=== PATIENT | male | born 1955 | race Caucasian/White ===

== ENCOUNTER 2016-10-13 13:24 | Inpatient (IN) | payer MEDICAID ==
[~2016-10-13] VITALS: Ht 172.7 cm; Wt 67.3 kg
--- NOTE | 2016-10-13 14:05 | ERD ---
ER Documentation Chief Complaint Date/Time DATE: 10/13/16 TIME: 14:03 Chief Complaint pt bib case workers with c/o "being confused" just ut'ed from [facility] HPI Patient is a 61-year-old male who presents with gradual onset, constant, generalized weakness and fatigue for 3 days. The patient states that he was discharged from [facility] after being admitted for syncope and hypertension. He is taking antihypertensive medications currently. He reports that he has chronic hemorrhoids and has had bleeding and pain from his hemorrhoids. He denies fever, cough, shortness of breath, vomiting, abdominal pain, chest pain. He denies headache or dizziness. He reports having new onset bilateral lower extremity edema. ROS All systems reviewed and are negative except as per history of present illness. Medications Home Meds Unable to Obtain Active Prescriptions or Reported Meds Allergies Allergies: Coded Allergies: aspirin (Verified Allergy, Mild, 10/13/16) PMhx/Soc Past medical history: Hypertension, asthma Past surgical history: Repair of umbilical hernia Social history: Smokes marijuana, denies alcohol or tobacco History of Surgery: Yes (HERNIA) Hx Cardiac Disorders: Yes (HTN) Hx Alcohol Use: No Hx Substance Use: No Hx Tobacco Use: Yes Smoking Status: Current some day smoker FmHx Family History: No coronary disease, No diabetes Physical Exam Vitals Vital Signs Date Time Temp Pulse Resp B/P Pulse Ox O2 Delivery O2 Flow Rate FiO2 10/13/16 17:39 98.4 91 18 129/76 98 Room Air 10/13/16 15:20 98.7 80 18 109/65 98 Room Air 10/13/16 13:29 98.0 102 18 123/65 98 Physical Exam Const: Alert, no acute distress Head: Atraumatic Eyes: Normal Conjunctiva, no pallor, no icterus ENT: Normal External Ears, Nose and Mouth. Tacky mucous membranes Neck: Full range of motion..~ No meningismus. No JVD Resp: Clear to auscultation bilaterally, no wheezes, no rales Cardio: Regular rate and rhythm, no murmurs Abd: Soft, non tender, non distended. Skin: No petechiae or rashes Back: No midline or flank tenderness Ext: No cyanosis, 2+ pitting edema to the upper shins bilaterally, symmetric Neur: Awake and alert, cranial nerves II through XII intact bilaterally, strength and sensation full in 4 extremities. Psych: Normal Mood and Affect Result Diagram: 10/13/16 1415 10/13/16 1415 Results 24 hrs Laboratory Tests Test 10/13/16 14:15 10/13/16 16:36 White Blood Count 19.510^3/ul Red Blood Count 4.2510^6/ul Hemoglobin 12.7g/dl Hematocrit 38.6% Mean Corpuscular Volume 90.8fl Mean Corpuscular Hemoglobin 29.9pg Mean Corpuscular Hemoglobin Concent 32.9g/dl Red Cell Distribution Width 14.2% Platelet Count 54233^3/UL Mean Platelet Volume 10.0fl Neutrophils % 67.7% Lymphocytes % 14.8% Monocytes % 9.0% Eosinophils % 2.8% Basophils % 0.6% Nucleated Red Blood Cells % 0.0/100WBC Neutrophils # (Manual) 13.210^3/ul Lymphocytes # 2.910^3/ul Monocytes # 1.810^3/ul Eosinophils # 0.610^3/ul Basophils # 0.110^3/ul Nucleated Red Blood Cells # 0.010^3/ul Prothrombin Time 12.7Sec Prothrombin Time Ratio 1.0 INR International Normalized Ratio 0.95 Sodium Level 143mmol/L Potassium Level 4.8mmol/L Chloride Level 101mmol/L Carbon Dioxide Level 27mmol/L Anion Gap 20 Blood Urea Nitrogen 50mg/dl Creatinine 3.93mg/dl Glucose Level 107mg/dl Lactic Acid Level 1.1mmol/L Calcium Level 8.7mg/dl Total Bilirubin 0.1mg/dl Direct Bilirubin 0.00mg/dl Indirect Bilirubin 0.1mg/dl Aspartate Amino Transf (AST/SGOT) 33IU/L Alanine Aminotransferase (ALT/SGPT) 39IU/L Alkaline Phosphatase 147IU/L Creatine Kinase 47IU/L Troponin I 0.016ng/ml B-Type Natriuretic Peptide 572PG/ML Total Protein 6.7g/dl Albumin 3.3g/dl Globulin 3.40g/dl Albumin/Globulin Ratio 0.97 Urine Color YELLOW Urine Clarity SLIGHTLY CLOUDY Urine pH 5.0 Urine Specific Lutz 1.015 Urine Ketones NEGATIVEmg/dL Urine Nitrite NEGATIVEmg/dL Urine Bilirubin NEGATIVEmg/dL Urine Urobilinogen 1+mg/dL Urine Leukocyte Esterase NEGATIVELeu/ul Urine Microscopic RBC 2/HPF Urine Microscopic WBC 2/HPF Urine Bacteria FEW/HPF Urine Hemoglobin NEGATIVEmg/dL Urine Glucose NEGATIVEmg/dL Urine Total Protein NEGATIVEmg/dl Urine Opiates Screen Negative Urine Barbiturates Negative Urine Amphetamines Screen Negative Urine Benzodiazepines Screen Negative Urine Cocaine Screen Negative Urine Cannabinoids Positive Current Medications Medications (Trade) Dose Ordered Sig/Rica Route PRN Reason Start Time Stop Time Status Last Admin Dose Admin Sodium Chloride (NS) 500 ml @ 500 mls/hr Q1H ONCE IV 10/13/16 18:30 10/13/16 19:29 Ondansetron HCl (Zofran Inj) 4 mg BRIDGE ORDER PRN IV NAUSEA AND/OR VOMITING 10/13/16 19:00 10/14/16 18:59 Acetaminophen (Tylenol Tab) 650 mg ER BRIDGE PRN PO MILD PAIN/FEVER 10/13/16 19:00 10/14/16 18:59 Procedures/MDM EKG read by me: Time 1422, rate 80 Rhythm: Normal sinus [place]: Normal Intervals: Normal ST-T waves: no ischemic changes Ectopy: No Q-waves: Anterior Q waves Impression: No evidence of ischemia or arrhythmia, anterior Q waves suggestive of prior anterior infarct MDM: Patient is a 61-year-old male who presents to the ER with generalized weakness and fatigue for 3 days. He states that he has also had new onset of lower extremity edema. The patient was admitted to [facility] on October 03. I obtained records from the hospital which indicate that the patient had acute renal failure with hyperkalemia and leukocytosis. Workup did not reveal a source of infection or a cause of the patient's renal failure. He was treated and his kidney function normalized to a creatinine of 1.4. He is now found to have a creatinine of almost 4. His BUN creatinine ratio does not suggest a prerenal etiology. An ultrasound of his bladder does not show a significant PVR. He has significant leukocytosis but no fever. There is no sign of soft tissue infection, UTI, pneumonia. Blood cultures were sent. Lactic acid was not elevated at outside hospital. His CK is not elevated. The patient has clinical signs of volume overload with bilateral lower extremity edema and has a slightly elevated BNP. I will give him a small bolus of fluid, and admit him for further workup of acute renal failure. Departure Diagnosis: Primary Impression: Generalized weakness Additional Impressions: Acute renal failure Acute renal failure type: unspecified Qualified Code: N17.9 - Acute renal failure, unspecified acute renal failure type Leukocytosis Leukocytosis type: unspecified Qualified Code: D72.829 - Leukocytosis, unspecified type Condition: ALEXY Lopez MD Oct 13, 2016 14:02
[2016-10-13 14:23] LABS: ABNORMAL IP MESSAGE 1; BASOPHIL # 0.1 10^3/ul (0.0-0.1); BASOPHILS % 0.6 % (0.0-2.0); EOSINOPHILS # 0.6 10^3/ul (0.0-0.5); EOSINOPHILS % 2.8 % (0.0-7.0); HEMATOCRIT 38.6 % (42.0-52.0); HEMOGLOBIN 12.7 g/dl (14.0-18.0); LYMPHOCYTES # 2.9 10^3/ul (0.8-2.9); LYMPHOCYTES % 14.8 % (15.0-51.0); MEAN CORPUSCULAR HEMOGLOBIN 29.9 pg (29.0-33.0); MEAN CORPUSCULAR HGB CONC 32.9 g/dl (32.0-37.0); MEAN CORPUSCULAR VOLUME 90.8 fl (82.0-101.0); MONOCYTE # 1.8 10^3/ul (0.3-0.9); NEUTROPHILS % 67.7 % (39.0-77.0); PLATELET COUNT 412 10^3/UL (140-415); POSITIVE DIFF @See below; RED BLOOD COUNT 4.25 10^6/ul (4.70-6.10); RED CELL DISTRIBUTION WIDTH 14.2 % (11.5-14.5); WHITE BLOOD COUNT 19.5 10^3/ul (4.8-10.8)
[2016-10-13 14:38] LABS: INR 0.95; PROTIME 12.7 Sec (12.2-14.2)
[2016-10-13 14:40] LABS: BILIRUBIN,INDIRECT 0.1 mg/dl (0-1.1); CALCIUM 8.7 mg/dl (8.4-10.2); CREATININE 3.93 mg/dl (0.61-1.24); POTASSIUM 4.8 mmol/L (3.5-5.1)
[2016-10-13 14:41] LABS: ALBUMIN 3.3 g/dl (3.3-4.9); ALBUMIN/GLOBULIN RATIO 0.97; BILIRUBIN,TOTAL 0.1 mg/dl (0.2-1.3); TOTAL PROTEIN 6.7 g/dl (6.1-8.1)
[2016-10-13 14:52] LABS: TROPONIN-I 0.016 ng/ml (0.00-0.12)
--- NOTE | 2016-10-13 15:33 | RADRPT ---
PROCEDURE: XR Chest. CLINICAL INDICATION: Shortness of breath TECHNIQUE: Single AP portable chest. COMPARISON: None. Chest x-ray FINDINGS: The cardiomediastinal silhouette is within normal limits of size. The lungs are clear without pleur al effusion or focal consolidation. No pneumothorax. The osseous structures and soft tissues are unr emarkable. IMPRESSION: 1. No evidence for active cardiopulmonary disease. RPTAT:AAJJ Dee Guzman Physician Date Time Electronically viewed and signed by Physician Dmitry on 10/13/2016 15:32 ARMANI/
[2016-10-13 17:01] LABS: ADD UMIC NO; UR ASCORBIC ACID NEGATIVE (NEGATIVE); UR BACTERIA FEW /HPF (NONE SEEN); UR BILIRUBIN (Dip) NEGATIVE (NEGATIVE); UR BLOOD (Dip) NEGATIVE (NEGATIVE); UR CLARITY SLIGHTLY CLOUDY (CLEAR); UR COLOR YELLOW (YELLOW); UR GLUCOSE (Dip) NEGATIVE (NEGATIVE); UR KETONES (Dip) NEGATIVE (NEGATIVE); UR LEUKOCYTE ESTERASE (Dip) NEGATIVE Leu/ul (NEGATIVE); UR NITRITE (Dip) NEGATIVE (NEGATIVE); UR RBC 2 /HPF (0-5); UR SPECIFIC GRAVITY (Dip) 1.015 (1.003-1.030); UR TOTAL PROTEIN (Dip) NEGATIVE (NEGATIVE); UR UROBILINOGEN (Dip) 1+ mg/dL (NEGATIVE)
[2016-10-13 17:39] VITALS: TEMP 98.4
[2016-10-13 17:47] LABS: BARBITURATES Negative (NEGATIVE); BENZODIAZEPINES Negative (NEGATIVE); CANNABINOIDS Positive (NEGATIVE); COCAINE Negative (NEGATIVE); OPIATES Negative (NEGATIVE)
[2016-10-13] MEDS ORDERED: SOD CHLORIDE 0.9% 500 ML IV ONE (18:30)
[2016-10-13] MEDS ORDERED: ACETAMINOPHEN 325 MG TAB PO PRN (19:00)
[2016-10-13] MEDS ORDERED: ONDANSETRON 4 MG INJ IV PRN ×2 (19:00→20:30)
--- NOTE | 2016-10-13 20:59 | RADRPT ---
PROCEDURE: RENAL ULTRASOUND: CLINICAL INDICATION: 61 years of age, male . Acute renal failure . COMPARISON: None available. TECHNIQUE: Multiple transverse and longitudinal sonographic handy scale images of the kidneys and thomas dder were obtained, supplemented with color, power, and spectral Doppler imaging. FINDINGS: Right kidney: Length: 9.1 cm. Appearance: 1.6 cm cyst interpolar parenchyma and 3.2 cm exophytic cyst superior pole. Parenchyma i s normal echogenicity. Negative for hydronephrosis. Left kidney: Length: 9.1 cm. Appearance: Normal parenchymal echogenicity. Negative for hydronephrosis. Bladder: Partially filled with a volume of 94 mL. Additional comment: None. IMPRESSION: Normal renal size. Negative for hydronephrosis. Right renal parenchymal cysts. RPTAT: HCTS Physician Miguel Date Time Electronically viewed and signed by Physician Miguel on 10/13/2016 20:58 /
[2016-10-13 21:00] VITALS: Ht 172.7 cm; Wt 67.3 kg
[2016-10-13] MEDS: DOCUSATE SODIUM 100 MG CAP PO SCH (21:00)
[2016-10-13] MEDS: SOD CHLORIDE 0.9% 1,000 ML IV SCH (21:05)
[2016-10-13 21:12] VITALS: BP 128/74; RESP 18
[2016-10-13 21:16] VITALS: BP 128/74
[2016-10-13] MEDS: FAMOTIDINE 20 MG TAB PO SCH (21:33)
[2016-10-14] MEDS ORDERED: morphine 2 MG INJ IV ONE (01:00)
[2016-10-14] MEDS ORDERED: morphine 2 MG INJ ONE (01:12)
[2016-10-14 02:00] VITALS: BP 148/80; PULSE 94; RESP 19
[2016-10-14] MEDS: SOD CHLORIDE 0.9% 1,000 ML IV SCH ×2 (04:00→05:11)
--- NOTE | 2016-10-14 06:40 | HP ---
DATE OF ADMISSION: 10/13/2016 CHIEF COMPLAINT: Generalized weakness and fatigue. HISTORY OF PRESENT ILLNESS: Mr. Carter is a 61-year-old male, who was brought in by his caregivers, with concerns of confusion, generalized weakness, and fatigue. The patient is able to communicate with me, but he is currently lethargic. He complains of just weakness and not feeling right, but the caregivers had reported fatigue when being initially dropped him. Per report, he was just discharged from [facility]. Per the ER documentation, he was admitted with syncope and hypertension and this was 3 days ago. He is also concerned about bilateral lower extremity edema, again which per report is of new onset. Of note, is that when he was at [facility], he was found to have an elevated creatinine, but these normalized and at the time of discharge, per report, his creatinine was down to 1.4. The patient has had no passing out episodes. He has no focal deficits. He has no numbness or weakness that is focal. He denies headache. Denies dysuria or hematuria. Denies black stool or melanotic stools. REVIEW OF SYSTEMS: A 12-point review of system was done. Pertinent findings as per HPI. ALLERGIES: THE PATIENT REPORTEDLY IS ALLERGIC TO ASPIRIN. PAST MEDICAL HISTORY: 1. Hypertension. 2. Asthma. SURGICAL HISTORY: Hernia repair. SOCIAL HISTORY: The patient is a current tobacco user and also smokes marijuana. Denies alcohol or illicit drug use. FAMILY HISTORY: Noncontributory. MEDICATIONS: The patient's medication are not available for reconciliation at this time. PHYSICAL EXAMINATION: VITAL SIGNS: His temperature 98.4, pulse 91, respirations 18, blood pressure 129/76, saturations 98 percent on room air. GENERAL: Alert, lethargic male, currently in no distress. HEENT: Head normocephalic. Pupils equal, round, reactive. Mucous membranes slightly dry. Posterior pharynx without exudate. NECK: Supple without JVD. LUNGS: Clear breath sounds reduced bilaterally. CARDIOVASCULAR: S1 and S2 without a murmur. ABDOMEN: Soft, nontender, with normoactive bowel sounds. LIVER EXTREMITIES: Positive for 2+ pitting edema bilaterally. NEUROLOGICALLY: No focal deficits. SKIN: Devoid of jaundice or rashes. PSYCHIATRIC: Cooperative with exam, but lethargic. LABS: He had a leukocytosis of 19,000, and HIS hemoglobin is also low at 12.7, his platelet count is normal. On his chemistry, his BUN is 50, creatinine is 3.93. His BNP was only 572, which is nonspecific. Liver profile was unremarkable. Urinalysis did 2 white blood cells per high-power field and a few bacteria, not overtly highly suggestive of a UTI. His urine toxicology screen was positive for marijuana. IMAGING: I reviewed the EKG. It showed sinus rhythm with a rate of 80 without evidence of acute ischemic changes, but he had some Q-waves suggestive of a prior infarct. A chest x-ray showed no evidence of active cardiopulmonary disease. ASSESSMENT: A 61-year-old male, who was brought in by caregivers because of confusion and generalized weakness with the followin. Mild acute encephalopathy, likely uremic in origin. 2. Recurrent acute renal failure. Rule out chronic kidney disease. Previous creatinine baseline of 1.43. 3. Volume overload, likely secondary to #2. 4. Hypertension with good control at this time. 5. Recent admission for syncope and hypertension. 6. Tobacco abuse. 7. Marijuana user. 8. Generalized weakness and fatigue, likely secondary to #1. 9. Mild normocytic normochromic anemia. PLAN: So, the patient is being admitted to telemetry floor and we will gently hydrate him to help with his renal insufficiency. Hopefully, with recovery of renal function, he will be able to urinate more and get rid of some of the volume. We will also get a renal ultrasound to rule out obstructive causes, even though a PVR in the emergency room did not show any high urinary residuals. This patient would benefit from nephrology review while in-house. We will send the urine for a urine culture, also complete an ACS rule out with 3 sets of cardiac enzymes. Rule out an occult heart failure with a 2D echo. The patient has been counseled on the need to quit tobacco use. We will continue to reinforce this while in-house. Further interventions will depend on his clinical course. For prophylaxis, he will be put on SCDs and the Pepcid. Dictated By: Aneta Moyer MD /carmine/linda /Document#: [id number]
[2016-10-14 08:16] VITALS: BP 136/71; RESP 20
[2016-10-14] MEDS: DOCUSATE SODIUM 100 MG CAP PO SCH ×2 (09:06→21:09)
[2016-10-14] MEDS: HEPARIN 5,000 UNIT/0.5 ML VIAL SC SCH ×2 (09:09→21:10)
[2016-10-14 10:42] LABS: BASOPHIL # 0.1 10^3/ul (0.0-0.1); BASOPHILS % 0.6 % (0.0-2.0); EOSINOPHILS # 0.4 10^3/ul (0.0-0.5); EOSINOPHILS % 2.6 % (0.0-7.0); HEMATOCRIT 40.6 % (42.0-52.0); HEMOGLOBIN 12.9 g/dl (14.0-18.0); LYMPHOCYTES # 3.2 10^3/ul (0.8-2.9); LYMPHOCYTES % 19.8 % (15.0-51.0); MEAN CORPUSCULAR HEMOGLOBIN 29.3 pg (29.0-33.0); MEAN CORPUSCULAR HGB CONC 31.8 g/dl (32.0-37.0); MEAN CORPUSCULAR VOLUME 92.3 fl (82.0-101.0); MEAN PLATELET VOLUME 10.3 fl (7.4-10.4); MONOCYTE # 1.2 10^3/ul (0.3-0.9); MONOCYTES % 7.5 % (0.0-11.0); NEUTROPHILS % 65.9 % (39.0-77.0); PLATELET COUNT 380 10^3/UL (140-415); RED CELL DISTRIBUTION WIDTH 14.2 % (11.5-14.5); WHITE BLOOD COUNT 16.2 10^3/ul (4.8-10.8)
[2016-10-14 10:57] LABS: ALBUMIN 3.1 g/dl (3.3-4.9); ALBUMIN/GLOBULIN RATIO 0.96; BILIRUBIN,INDIRECT 0.2 mg/dl (0-1.1); BILIRUBIN,TOTAL 0.2 mg/dl (0.2-1.3); CALCIUM 8.5 mg/dl (8.4-10.2); CREATININE 3.05 mg/dl (0.61-1.24); POTASSIUM 5.1 mmol/L (3.5-5.1); TOTAL PROTEIN 6.3 g/dl (6.1-8.1)
--- NOTE | 2016-10-14 12:02 | CONS ---
Date/Time of Note Date/Time of Note DATE: 10/14/16 TIME: 11:56 Assessment/Plan Assessment/Plan Additional Assessment/Plan 1. AMS due to acute uremia- now improved, pt now communicative back to baseline 2. Acute Kidney Injury on CKD , recurrent episodes, Cr has been gradually worsening due to noncompliance with BP medications 3. Acute Volume overload, likely secondary to #2. 4. Hypertension with good control at this time. 5. h/o CKD possibly due to Uncontrolled HTN causing hypertensive nephrosclerosis 6. Tobacco abuse. 7. Marijuana user. Plan: Cr Improved, Renal US unremarkable Ck total normal will order urine studies including urine Na, urine Prot/cr ratio, urine eosinophils, Uric acid with AM labs no need for dialysis at this point will follow up pediatric social worker consult for substance abuse and to find his inusurance information ( pt says he has MediCal) Thanks for consultation, will follow up Consultation Date/Type/Reason Admit Date/Time Oct 13, 2016 at 18:59 Date of Consultation: Oct 14, 2016 Type of Consultation: NEPHROLOGY Reason for Consultation acute kidney injury Referring Provider: ALEXY JOSHI MD Hx of Present Illness 61 m with PMhx of HTN, H/o hernia repair, H/o marajuna use, presented to [facility] ER with confusion. he gets admitted for acute uremia and Encephalopaty.tyrell ballesteros has been consulted for AGNES vs AGNES on CKD Constitutional: no complaints Eyes: no complaints ENT: no complaints Respiratory: no complaints Cardiovascular: no complaints Gastrointestinal: no complaints Genitourinary: flank pain Musculoskeletal: no complaints Skin: no complaints Neurologic: no complaints Endocrine: no complaints Lymphatic: no complaints Psychological: no complaints Immunologic: no complaints Past Medical History Medical History: hypertension, other (asthma ) Past Surgical History Past Surgical Hx: other (hernia repair surgery ) Social History Alcohol Use: none Smoking Status: Current every day smoker Drug Use: marijuana Exam/Review of Systems Vital Signs Vitals Vital Signs Date Time Temp Pulse Resp B/P Pulse Ox O2 Delivery O2 Flow Rate FiO2 10/14/16 08:16 97.7 92 20 136/71 98 10/14/16 02:00 Room Air Intake and Output 10/13/16 10/13/16 10/14/16 15:00 23:00 07:00 Intake Total 200 ml Balance 200 ml Exam Constitutional: alert, other (but sleepy ) Psych: no complaints Head: normocephalic Eyes: nl conjunctiva ENMT: nl external ears & nose Neck: supple Respiratory: clear to auscultation, diminished breath sounds, normal air movement Cardiovascular: nl pulses, regular rate and rhythm Gastrointestinal: non-tender, soft Musculoskeletal: nl extremities to inspection Extremities: normal pulses Neurological: [employer] II-XII intact Results Result Diagram: 10/14/16 1004 10/14/16 1004 Results 24 hrs Laboratory Tests Test 10/13/16 14:15 10/13/16 16:36 10/14/16 10:04 White Blood Count 19.5 H 16.2 H Red Blood Count 4.25 L 4.40 L Hemoglobin 12.7 L 12.9 L Hematocrit 38.6 L 40.6 L Mean Corpuscular Volume 90.8 92.3 Mean Corpuscular Hemoglobin 29.9 29.3 Mean Corpuscular Hemoglobin Concent 32.9 31.8 L Red Cell Distribution Width 14.2 14.2 Platelet Count 412 380 Mean Platelet Volume 10.0 10.3 Neutrophils % 67.7 65.9 Lymphocytes % 14.8 L 19.8 Monocytes % 9.0 7.5 Eosinophils % 2.8 2.6 Basophils % 0.6 0.6 Nucleated Red Blood Cells % 0.0 0.0 Neutrophils # (Manual) 13.2 H 10.7 H Lymphocytes # 2.9 3.2 H Monocytes # 1.8 H 1.2 H Eosinophils # 0.6 H 0.4 Basophils # 0.1 0.1 Nucleated Red Blood Cells # 0.0 0.0 Prothrombin Time 12.7 Prothrombin Time Ratio 1.0 INR International Normalized Ratio 0.95 Sodium Level 143 147 H Potassium Level 4.8 5.1 Chloride Level 101 107 Carbon Dioxide Level 27 29 Anion Gap 20 H 16 Blood Urea Nitrogen 50 H 42 H Creatinine 3.93 H 3.05 H Glucose Level 107 101 Lactic Acid Level 1.1 Calcium Level 8.7 8.5 Total Bilirubin 0.1 L 0.2 Direct Bilirubin 0.00 0.00 Indirect Bilirubin 0.1 0.2 Aspartate Amino Transf (AST/SGOT) 33 36 Alanine Aminotransferase (ALT/SGPT) 39 43 Alkaline Phosphatase 147 H 143 H Creatine Kinase 47 Troponin I 0.016 B-Type Natriuretic Peptide 572 H Total Protein 6.7 6.3 Albumin 3.3 3.1 L Globulin 3.40 H 3.20 Albumin/Globulin Ratio 0.97 0.96 Urine Color YELLOW Urine Clarity SLIGHTLY CLOUDY A Urine pH 5.0 Urine Specific Staley 1.015 Urine Ketones NEGATIVE Urine Nitrite NEGATIVE Urine Bilirubin NEGATIVE Urine Urobilinogen 1+ H Urine Leukocyte Esterase NEGATIVE Urine Microscopic RBC 2 Urine Microscopic WBC 2 Urine Bacteria FEW A Urine Hemoglobin NEGATIVE Urine Glucose NEGATIVE Urine Total Protein NEGATIVE Urine Opiates Screen Negative Urine Barbiturates Negative Urine Amphetamines Screen Negative Urine Benzodiazepines Screen Negative Urine Cocaine Screen Negative Urine Cannabinoids Positive Medications Medications Current Medications Docusate Sodium (Colace) 100 mg BID PO Last administered on 10/14/16 09:06; Admin Dose 100 MG; Start 10/13/16 at 21:00 Famotidine (Pepcid) 20 mg Q24H PO Last administered on 10/13/16 21:33; Admin Dose 20 MG; Start 10/13/16 at 21:00 Ondansetron HCl (Zofran Inj) 4 mg Q6H PRN IV NAUSEA AND/OR VOMITING; Start at 20:30 Hydralazine HCl (Apresoline) 10 mg Q6H PRN IV sbp>160mmhg; Start 10/13/16 at 20 :30 Heparin Sodium (Porcine) (Heparin (5000 Units/0.5 ml)) 5,000 unit BID SC Last administered on 10/14/16 09:09; Admin Dose 5,000 UNIT; Start 10/14/16 at 09:00 Acetaminophen/ Hydrocodone Bitart ([place]rypton (5/325)) 1 tab Q6H PRN PO PAIN; Start 10/14/16 at 01:00 CR BRICEÑO MD Oct 14, 2016 12:02
[2016-10-14 14:15] VITALS: BP 134/80; RESP 18
[2016-10-14 15:10] LABS: PROTEIN/CREAT RATIO 0.21 RATIO
[2016-10-14 20:00] VITALS: BP 157/95; RESP 18
[2016-10-14] MEDS: FAMOTIDINE 20 MG TAB PO SCH (21:09)
[2016-10-15 02:00] VITALS: BP 157/79; RESP 18
[2016-10-15 07:56] VITALS: BP 171/85; RESP 18
[2016-10-15] MEDS: DOCUSATE SODIUM 100 MG CAP PO SCH ×2 (08:46→20:25)
[2016-10-15] MEDS: HEPARIN 5,000 UNIT/0.5 ML VIAL SC SCH ×2 (08:47→20:26)
[2016-10-15 08:52] VITALS: BP 165/79; PULSE 73
[2016-10-15] MEDS: hydrALAzine 20 MG INJ IV PRN (08:52)
--- NOTE | 2016-10-15 10:17 | RADRPT ---
Echocardiogram Report Patient Name: VY JASON Gender: Male Date: 1955 Study Date: 14-Oct-2016 Rn Mental Health: Janeen Duke [facility] Location: [id number] Ref. Physician: IRMA PAGE Quality: Good Procedures: Transthoracic echocardiogram with complete 2D, M-Mode, and doppler examination. Indications: rule out effusion. 2D/M Mode Doppler Measurement Value Normal Ranges Measurement Value Normal Ranges LVIDd 2D 3.7 3.5 - 5.6 cm AV Peak Rob 1.5 m/sec LVIDs 2D 2.3 2.1 - 4.1 cm AV Peak PG 9.0 mmHg FS 2D 39.2 % LVOT Peak Rob 1.0 m/sec LVPWd 2D 1.3 0.6 - 1.1 cm LVOT Peak PG 4.0 mmHg IVSd 2D 1.3 0.6 - 1.1 cm MV E Peak Rob 0.5 m/sec IVS/LVPW 2D 1.0 MV A Peak Rob 0.9 m/sec AoR Diam 2D 2.9 2.0 - 3.7 cm MV E/A 0.5 LA/Ao 2D 1 0 - 1 MV Decel Time 187 msec EDV 2D 51.5 cm3 MV E/A 0.5 ESV 2D 11.5 cm3 TR Peak Rob 2.7 m/sec LA Dimen 2D 3.5 2.3 - 4.0 cm TR Peak PG 29.0 mmHg RVSP 32.0 mmHg Findings Left Ventricle: Normal left ventricular systolic function. Normal left ventricular cavity size. Mild concentric left ventricular hypertrophy. Ejection fraction is visually estimated at 65 %. Tissue Doppler/Mitral Doppler indices are consistent with impaired relaxation (Stage I diastolic dysfunction). Right Ventricle: Normal right ventricular size. Normal right ventricular systolic function. Left Atrium: Upper limit of normal left atrial size. Right Atrium: The right atrium is normal in size. Mitral Valve: Mild mitral annular calcification. Trace mitral regurgitation. Aortic Valve: Normal appearance of the aortic valve. No significant aortic stenosis or insufficiency. Tricuspid Valve: Normal appearance of the tricuspid valve. Estimated peak PA systolic pressure 32 mmHg. There is trace tricuspid regurgitation. Pulmonic Valve: Normal pulmonic valve appearance. Pericardium: Normal pericardium with no significant pericardial effusion. Aorta: Normal aortic root. IVC: Normal size and normal respiratory collapse consistent with normal right atrial pressure. Conclusions 1.Normal left ventricular systolic function. Normal left ventricular cavity size. Mild concentric left ventricular hypertrophy. Ejection fraction is visually estimated at 65 %. Tissue Doppler/Mitral Doppler indices are consistent with impaired relaxation (Stage I diastolic dysfunction). 2.No significant valvular stenosis or regurgitation seen. 3.Estimated peak PA systolic pressure 32 mmHg based on RA pressure of 3 mmHg. Electronically Signed By: Montana Tafoya 15-Oct-2016 10:16:08 -0700 Patient Name: VY JASON Study Date: 14-Oct-2016 [id number]
--- NOTE | 2016-10-15 12:52 | CONS ---
Date/Time of Note Date/Time of Note DATE: 10/15/16 TIME: 12:50 Assessment/Plan Assessment/Plan Chief Complaint/Hosp Course 61 m with PMhx of HTN, H/o hernia repair, H/o marajuna use, presented to [facility] ER with confusion. he gets admitted for acute uremia and Encephalopaty.r lesli has been consulted for AGNES vs AGNES on CKD Problems: Additional Assessment/Plan 1. AMS due to acute uremia- now improved, pt now communicative back to baseline 2. Acute Kidney Injury on CKD , recurrent episodes, Cr has been gradually worsening due to noncompliance with BP medications 3. Acute Volume overload, likely secondary to #2. 4. Hypertension with good control at this time. 5. h/o CKD possibly due to Uncontrolled HTN causing hypertensive nephrosclerosis 6. Tobacco abuse. 7. Marijuana user. 8. Hyperuricemia with Uric acid 8.2 Plan: BUN 42, Cr 3.05, Renal US unremarkable Ck total normal, uric acid slightly high, will start allopurinol 100m,g po daily no need for dialysis at this point will follow up perinatal social worker consult for substance abuse and to find his inusurance information ( pt says he has MediCal) Consultation Date/Type/Reason Admit Date/Time Oct 13, 2016 at 18:59 Initial Consult Date 10/14/16 Type of Consultation: NEPHROLOGY Referring Provider: ALEXY JOSHI MD 24 HR Interval Summary Free Text/Dictation Cr slightly [facility] IVF, may be near his baseline, BP stable Exam/Review of Systems Vital Signs Vitals Vital Signs Date Time Temp Pulse Resp B/P Pulse Ox O2 Delivery O2 Flow Rate FiO2 10/15/16 08:52 73 165/79 10/15/16 07:56 98.1 18 96 10/14/16 02:00 Room Air Intake and Output 10/14/16 10/14/16 10/15/16 15:00 23:00 07:00 Intake Total 750 ml 1080 ml 320 ml Balance 750 ml 1080 ml 320 ml Results Result Diagram: 10/14/16 1004 10/14/16 1004 Results 24 hrs Laboratory Tests Test 10/15/16 04:28 Uric Acid 8.2 H Medications Medications Current Medications Docusate Sodium (Colace) 100 mg BID PO Last administered on 10/15/16t 08:46; Admin Dose 100 MG; Start 10/13/16 at 21:00 Famotidine (Pepcid) 20 mg Q24H PO Last administered on 10/14/16 21:09; Admin Dose 20 MG; Start 10/13/16 at 21:00 Ondansetron HCl (Zofran Inj) 4 mg Q6H PRN IV NAUSEA AND/OR VOMITING; Start at 20:30 Hydralazine HCl (Apresoline) 10 mg Q6H PRN IV sbp>160mmhg Last administered on 10/15/16 08:52; Admin Dose 10 MG; Start 10/13/16 at 20:30 Heparin Sodium (Porcine) (Heparin (5000 Units/0.5 ml)) 5,000 unit BID SC Last administered on 10/15/16 08:47; Admin Dose 5,000 UNIT; Start 10/14/16 at 09:00 Acetaminophen/ Hydrocodone Bitart ([place] (5/325)) 1 tab Q6H PRN PO PAIN; Start 10/14/16 at 01:00 CR BRICEÑO MD Oct 15, 2016 12:52
[2016-10-15] MEDS: ALLOPURINOL 100 MG TAB PO SCH (13:59)
[2016-10-15 15:41] VITALS: BP 136/65; RESP 18
[2016-10-15 16:51] LABS: CALCIUM 8.6 mg/dl (8.4-10.2); CREATININE 2.29 mg/dl (0.61-1.24); POTASSIUM 4.4 mmol/L (3.5-5.1)
--- NOTE | 2016-10-15 19:46 | PN ---
Date/Time of Note Date/Time of Note DATE: 10/15/16 TIME: 19:44 Assessment/Plan VTE Prophylaxis VTE Prophylaxis Intervention: LMWH Lines/Catheters IV Catheter Type (from [facility]): Saline Lock Urinary Cath still in place: No Assessment/Plan Chief Complaint/Hosp Course 61 yo male without significant PMH who presents with AGNES, likely prerenal AGNES: - Creatinine down with fluids - IMaging normal - Likley was prereean AGNES - Unclear baseline Discharge tomorrow in AM Problems: Subjective 24 Hr Interval Summary Free Text/Dictation Feels very well Creatinine decreased to 2 with IVF Offered him discharge today but prefers to leave tomorrow No complaitns Exam/Review of Systems Vital Signs Vitals Vital Signs Date Time Temp Pulse Resp B/P Pulse Ox O2 Delivery O2 Flow Rate FiO2 10/15/16 15:41 98.1 69 18 136/65 95 10/14/16 02:00 Room Air Intake and Output 10/14/16 10/14/16 10/15/16 14:59 22:59 06:59 Intake Total 750 ml 1080 ml 320 ml Balance 750 ml 1080 ml 320 ml Results Result Diagram: 10/14/16 1004 10/15/16 1616 Results 24 hrs Laboratory Tests Test 10/15/16 04:28 10/15/16 16:16 Uric Acid 8.2 H Sodium Level 138 Potassium Level 4.4 Chloride Level 101 Carbon Dioxide Level 28 Anion Gap 13 Blood Urea Nitrogen 39 H Creatinine 2.29 H Glucose Level 91 Calcium Level 8.6 Medications Medications Current Medications Docusate Sodium (Colace) 100 mg BID PO Last administered on 10/15/16 08:46; Admin Dose 100 MG; Start 10/13/16 at 21:00 Famotidine (Pepcid) 20 mg Q24H PO Last administered on 10/14/16 21:09; Admin Dose 20 MG; Start 10/13/16 at 21:00 Ondansetron HCl (Zofran Inj) 4 mg Q6H PRN IV NAUSEA AND/OR VOMITING; Start at 20:30 Hydralazine HCl (Apresoline) 10 mg Q6H PRN IV sbp>160mmhg Last administered on 10/15/16 08:52; Admin Dose 10 MG; Start 10/13/16 at 20:30 Heparin Sodium (Porcine) (Heparin (5000 Units/0.5 ml)) 5,000 unit BID SC Last administered on 10/15/16 08:47; Admin Dose 5,000 UNIT; Start 10/14/16 at 09:00 Acetaminophen/ Hydrocodone Bitart ([place] (5/325)) 1 tab Q6H PRN PO PAIN; Start 10/14/16 at 01:00 Allopurinol (Zyloprim) 100 mg DAILY PO Last administered on 10/15/16 13:59; Admin Dose 100 MG; Start 10/15/16 at 13:00 ALEXY JOSHI MD Oct 15, 2016 19:46
[2016-10-15 20:15] VITALS: BP 168/88; RESP 18
[2016-10-15] MEDS: FAMOTIDINE 20 MG TAB PO SCH (20:25)
[2016-10-16] VITALS (7 sets, daily range): BP systolic 134–185; BP diastolic 76–96; PULSE 88; RESP 16–18
[2016-10-16] MEDS: HYDROCODONE/APAP (5/325) TAB PO PRN (02:21)
[2016-10-16] MEDS: hydrALAzine 20 MG INJ IV PRN ×2 (03:29→20:30)
[2016-10-16 07:45] LABS: CALCIUM 8.6 mg/dl (8.4-10.2); CREATININE 2.13 mg/dl (0.61-1.24); POTASSIUM 4.3 mmol/L (3.5-5.1)
[2016-10-16] MEDS: DOCUSATE SODIUM 100 MG CAP PO SCH ×2 (08:34→20:30)
[2016-10-16] MEDS: HEPARIN 5,000 UNIT/0.5 ML VIAL SC SCH ×2 (08:38→20:32)
[2016-10-16] MEDS: ALLOPURINOL 100 MG TAB PO SCH (10:46)
--- NOTE | 2016-10-16 18:04 | CONS ---
Date/Time of Note Date/Time of Note DATE: 10/16/16 TIME: 18:03 Assessment/Plan Assessment/Plan Chief Complaint/Hosp Course 61 m with PMhx of HTN, H/o hernia repair, H/o marajuna use, presented to [facility] ER with confusion. he gets admitted for acute uremia and Encephalopaty.r lesli has been consulted for AGNES vs AGNES on CKD Problems: Additional Assessment/Plan 1. AMS due to acute uremia- now improved, pt now communicative back to baseline 2. Acute Kidney Injury on CKD , recurrent episodes, Cr has been gradually worsening due to noncompliance with BP medications 3. Acute Volume overload, likely secondary to #2. 4. Hypertension with good control at this time. 5. h/o CKD possibly due to Uncontrolled HTN causing hypertensive nephrosclerosis 6. Tobacco abuse. 7. Marijuana user. 8. Hyperuricemia with Uric acid 8.2 Plan: BUN/Cr imrpoving,, Renal US unremarkable Ck total normal, uric acid slightly high, on allopurinol 100m,g po daily no need for dialysis at this point BP high, will start procardia XL 30mg po daily one dose now will follow up social work lecturer consult for substance abuse and to find his inusurance information ( pt says he has MediCal) Consultation Date/Type/Reason Admit Date/Time Oct 13, 2016 at 18:59 Initial Consult Date 10/14/16 Type of Consultation: NEPHROLOGY Referring Provider: ALEXY JOSHI MD Exam/Review of Systems Vital Signs Vitals Vital Signs Date Time Temp Pulse Resp B/P Pulse Ox O2 Delivery O2 Flow Rate FiO2 10/16/16 14:00 97.9 18 140/86 98 10/16/16 08:03 68 10/14/16 02:00 Room Air Intake and Output 10/15/16 10/15/16 10/16/16 15:00 23:00 07:00 Intake Total 820 ml 360 ml Balance 820 ml 360 ml Results Result Diagram: 10/14/16 1004 10/16/16 0505 Results 24 hrs Laboratory Tests Test 10/16/16 05:05 Sodium Level 139 Potassium Level 4.3 Chloride Level 102 Carbon Dioxide Level 28 Anion Gap 13 Blood Urea Nitrogen 36 H Creatinine 2.13 H Glucose Level 79 Calcium Level 8.6 Medications Medications Current Medications Docusate Sodium (Colace) 100 mg BID PO Last administered on 10/16/16 08:34; Admin Dose 100 MG; Start 10/13/16 at 21:00 Famotidine (Pepcid) 20 mg Q24H PO Last administered on 10/15/16 20:25; Admin Dose 20 MG; Start 10/13/16 at 21:00 Ondansetron HCl (Zofran Inj) 4 mg Q6H PRN IV NAUSEA AND/OR VOMITING; Start at 20:30 Hydralazine HCl (Apresoline) 10 mg Q6H PRN IV sbp>160mmhg Last administered on 10/16/16 03:29; Admin Dose 10 MG; Start 10/13/16 at 20:30 Heparin Sodium (Porcine) (Heparin (5000 Units/0.5 ml)) 5,000 unit BID SC Last administered on 10/16/16 08:38; Admin Dose 5,000 UNIT; Start 10/14/16 at 09:00 Acetaminophen/ Hydrocodone Bitart ([place] (5/325)) 1 tab Q6H PRN PO PAIN Last administered on 10/16/16 02:21; Admin Dose 1 TAB; Start 10/14/16 at 01:00 Allopurinol (Zyloprim) 100 mg DAILY PO Last administered on 10/16/16 10:46; Admin Dose 100 MG; Start 10/15/16 at 13:00 CR BRICEÑO MD Oct 16, 2016 18:04
--- NOTE | 2016-10-16 18:19 | PN ---
Date/Time of Note Date/Time of Note DATE: 10/16/16 TIME: 18:18 Assessment/Plan VTE Prophylaxis VTE Prophylaxis Intervention: LMWH Lines/Catheters IV [facility]from [facility] Saline Lock Urinary Cath still in place: No Assessment/Plan Chief Complaint/Hosp Course Objective: No events Objective: BP a little high No pallor droop Regular Clear Benign No edema Assessment and plan 1. Acute renal failure. Probably prerenal, stable hydrate 2. Uremic encephalopathy. Stable improved 3. Hypertension 4. Mild anemia 6. Failure to thrive/debility 7. Asthma 8. Tobacco/marijuana Problems: Exam/Review of Systems Vital Signs Vitals Vital Signs Date Time Temp Pulse Resp B/P Pulse Ox O2 Delivery O2 Flow Rate FiO2 10/16/16 14:00 97.9 18 140/86 98 10/16/16 08:03 68 10/14/16 02:00 Room Air Intake and Output 10/15/16 10/15/16 10/16/16 15:00 23:00 07:00 Intake Total 820 ml 360 ml Balance 820 ml 360 ml Results Result Diagram: 10/14/16 1004 10/16/16 0505 Results 24 hrs Laboratory Tests Test 10/16/16 05:05 Sodium Level 139 Potassium Level 4.3 Chloride Level 102 Carbon Dioxide Level 28 Anion Gap 13 Blood Urea Nitrogen 36 H Creatinine 2.13 H Glucose Level 79 Calcium Level 8.6 Medications Medications Current Medications Docusate Sodium (Colace) 100 mg BID PO Last administered on 10/16/16 08:34; Admin Dose 100 MG; Start 10/13/16 at 21:00 Famotidine (Pepcid) 20 mg Q24H PO Last administered on 10/15/16 20:25; Admin Dose 20 MG; Start 10/13/16 at 21:00 Ondansetron HCl (Zofran Inj) 4 mg Q6H PRN IV NAUSEA AND/OR VOMITING; Start at 20:30 Hydralazine HCl (Apresoline) 10 mg Q6H PRN IV sbp>160mmhg Last administered on 10/16/16 03:29; Admin Dose 10 MG; Start 10/13/16 at 20:30 Heparin Sodium (Porcine) (Heparin (5000 Units/0.5 ml)) 5,000 unit BID SC Last administered on 10/16/16 08:38; Admin Dose 5,000 UNIT; Start 10/14/16 at 09:00 Acetaminophen/ Hydrocodone Bitart ([place] (5/325)) 1 tab Q6H PRN PO PAIN Last administered on 10/16/16 02:21; Admin Dose 1 TAB; Start 10/14/16 at 01:00 Allopurinol (Zyloprim) 100 mg DAILY PO Last administered on 10/16/16 10:46; Admin Dose 100 MG; Start 10/15/16 at 13:00 Nifedipine (Procardia Xl) 30 mg ONCE ONCE PO ; Start 10/16/16 at 18:30; Stop at 18:31 Nifedipine (Procardia Xl) 30 mg DAILY PO ; Start 10/17/16 at 09:00 ZULEYKA MILLAN MD Oct 16, 2016 18:19
[2016-10-16] MEDS ORDERED: NIFEdipine (XL) 30 MG TAB PO ONE (18:30)
[2016-10-16] MEDS: FAMOTIDINE 20 MG TAB PO SCH (20:30)
[2016-10-17 02:03] VITALS: BP 141/80; RESP 18
[2016-10-17] MEDS: HYDROCODONE/APAP (5/325) TAB PO PRN (02:17)
[2016-10-17 07:56] VITALS: BP 136/76; RESP 16
[2016-10-17] MEDS ORDERED: NIFEdipine (XL) 30 MG TAB PO SCH (09:00)
--- NOTE | 2016-10-17 09:33 | DS ---
Date/Time of Note Date/Time of Note DATE: 10/17/16 TIME: 09:31 Discharge Summary Admission/Discharge Info Admit Date/Time Oct 13, 2016 at 18:59 Discharge Date/Time Discharge Diagnosis Acute Renal Failure Patient Condition: Stable Hospital Course Admitted w Acute renal failure w uremia. treated conservatively, improved. stable and fit for discharge. etio- unknown. no obstruction or infection. medications reviewed. A/P 1. Acute renal failure. Probably prerenal, stable, dc home. 2. Uremic encephalopathy. Stable improved 3. Hypertension 4. Mild anemia 6. Failure to thrive/debility 7. Asthma 8. Tobacco/marijuana Home Meds Unable to Obtain Active Prescriptions or Reported Meds Primary Care Provider Care Physician No Primary ZULEYKA MILLAN MD Oct 17, 2016 09:33
--- NOTE | 2016-10-17 09:34 | PDOCDIS ---
Discharge Instructions DIAGNOSIS Discharge Diagnosis Acute Renal Failure CONDITION Patient Condition: Stable HOME CARE INSTRUCTIONS: Special Diet: Renal diet ACTIVITY: Activity Restrictions: Slowly Increase Activity Do not Drive FOLLOW UP/APPOINTMENTS Follow-up Plan PCP 1week. do blood work [BMP] to check kidney function in 1-2wks. ZULEYKA MILLAN MD Oct 17, 2016 09:34
[2016-10-17] MEDS ORDERED: NIFE60TA7 PO (09:35)
[2016-10-17] MEDS: DOCUSATE SODIUM 100 MG CAP PO SCH (10:18)
[2016-10-17] MEDS: ALLOPURINOL 100 MG TAB PO SCH (10:18)
[2016-10-17] MEDS: HEPARIN 5,000 UNIT/0.5 ML VIAL SC SCH (10:21)
--- NOTE | 2016-10-17 16:31 | CONS ---
Date/Time of Note Date/Time of Note DATE: 10/17/16 TIME: 16:30 Assessment/Plan Assessment/Plan Chief Complaint/Hosp Course 61 m with PMhx of HTN, H/o hernia repair, H/o marajuna use, presented to [facility] ER with confusion. he gets admitted for acute uremia and Encephalopaty.r lesli has been consulted for AGNES vs AGNES on CKD Problems: Additional Assessment/Plan 1. AMS due to acute uremia- now improved, pt now communicative back to baseline 2. Acute Kidney Injury on CKD , recurrent episodes, Cr has been gradually worsening due to noncompliance with BP medications 3. Acute Volume overload, likely secondary to #2. 4. Hypertension with good control at this time. 5. h/o CKD possibly due to Uncontrolled HTN causing hypertensive nephrosclerosis 6. Tobacco abuse. 7. Marijuana user. 8. Hyperuricemia with Uric acid 8.2 Plan: BUN/Cr imrpoving,, Renal US unremarkable Ck total normal, uric acid slightly high, on allopurinol 100m,g po daily no need for dialysis at this point BP high, will start procardia XL 30mg po daily one dose now will follow up geriatric social work professor consult for substance abuse and to find his inusurance information ( pt says he has MediCal) Consultation Date/Type/Reason Admit Date/Time Oct 13, 2016 at 18:59 Initial Consult Date 10/14/16 Type of Consultation: NEPHROLOGY Referring Provider: ALEXY JOSHI MD Exam/Review of Systems Vital Signs Vitals Vital Signs Date Time Temp Pulse Resp B/P Pulse Ox O2 Delivery O2 Flow Rate FiO2 10/17/16 07:56 97.6 65 16 136/76 96 10/14/16 02:00 Room Air Intake and Output 10/16/16 10/16/16 10/17/16 15:00 23:00 07:00 Intake Total 560 ml 480 ml Balance 560 ml 480 ml Results Result Diagram: 10/14/16 1004 10/16/16 0505 CR BRICEÑO MD Oct 17, 2016 16:30
[2016-10-18] MEDS ORDERED: NIFEdipine (XL) 60 MG TAB PO SCH (09:00)
== END 2016-10-17 14:10 | disposition home or self-care (01) | DRG 682 ==
LOC: E/R 13:24 → PP2 18:59
PROVIDERS: ADMIT Internal Medicine; ATTEND Internal Medicine
DX: N17.9 Acute kidney failure, unspecified (principal); G93.40 Encephalopathy, unspecified; I12.9 Hypertensive chronic kidney disease with stage 1 through stage 4 chronic kidney disease, or unspecified chronic kidney disease; N18.9 Chronic kidney disease, unspecified; J45.909 Unspecified asthma, uncomplicated; F12.10 Cannabis abuse, uncomplicated; D64.9 Anemia, unspecified; E79.0 Hyperuricemia without signs of inflammatory arthritis and tophaceous disease; R62.7 Adult failure to thrive; Z72.0 Tobacco use; Z91.14 Patient's other noncompliance with medication regimen; Z59.0 Homelessness; Z88.6 Allergy status to analgesic agent; Z98.890 Other specified postprocedural states
CPT/HCPCS: 36415; 71010; 76775; 80048; 80053; 80307; 81001; 81003; 82550; 82570; 83605; 83880; 84155; 84300; 84484; 84560; 85025; 85610; 87040; 87086; 89190; 93005; 93306; J0360; J1644; J2270; J7030; J7040

== ENCOUNTER 2016-11-02 20:54 | Emergency (ER) | payer MEDICAID ==
[~2016-11-02] VITALS: Ht 172.7 cm; Wt 80.0 kg
[~2016-11-02 20:54] MED LIST: NIFE60TA7 PO
[2016-11-02 21:22] VITALS: Ht 172.7 cm; Wt 80.0 kg
[2016-11-02 22:58] VITALS: BP 190/119; PULSE 90; RESP 19; TEMP 98.4
--- NOTE | 2016-11-02 23:25 | ERA ---
ER Documentation Chief Complaint Date/Time DATE: 11/02/16 TIME: 23:24 Chief Complaint HEADACHE AND BODY PAIN. FELL TODAT BUT DIDNT HIT HIS HEAD; HYPERTENSION HPI The patient is a 61-year-old male, presenting to the ER because of headache after he fell today. He was discharged earlier today from the hospital, he complains of vague headache, denies facial pain, neck pain, chest pain, abdominal pain, vomiting, dysuria, diarrhea. He complains of generalized weakness intermittently for more than 2 months, he has a right periorbital ecchymosis from the fall about 1 week ago. He smokes and drinks and denies drinking. Past medical history: Chronic kidney disease, hypertension, asthma, right forearm hematoma from the fall recently Past surgical history: Umbilical herniorrhaphy ROS All systems reviewed and are negative except as per history of present illness. Medications Home Meds Discontinued Scripts Nifedipine (Afeditab CR) 60 Mg Tablet.sa, 60 MG PO DAILY for 14 Days, #20 Prov:ZULEYKA MILLAN MD 10/17/16 Allergies Allergies: Coded Allergies: aspirin (Unverified Allergy, Severe, NAUSEA ; VOMITTING, 11/03/16) PMhx/Soc History of Surgery: Yes (HERNIA REPAIR) Anesthesia Reaction: No Hx Neurological Disorder: No Hx Respiratory Disorders: No Hx Cardiac Disorders: Yes (HTN) Hx Psychiatric Problems: No Hx Miscellaneous Medical Probl: No Hx Alcohol Use: No Hx Substance Use: Yes (SMOKES WEED) Hx Tobacco Use: Yes (SMOKED WEED) Smoking Status: Never smoker Physical Exam Vitals Vital Signs Date Time Temp Pulse Resp B/P Pulse Ox O2 Delivery O2 Flow Rate FiO2 11/02/16 22:58 98.4 90 19 190/119 97 Room Air 11/02/16 21:22 98.4 130 19 203/115 97 Physical Exam Const: No acute distress. Head: Atraumatic. Eyes: Normal Conjunctiva. ENT: Normal External Ears, Nose and Mouth.Right periorbital ecchymosis , no eye entrapment Neck: Full range of motion. No meningismus. Resp: Clear to auscultation bilaterally. Cardio: Regular Tachycardic. Abd: Soft, non distended, normal bowel sounds, non tender. Skin: No petechiae or rashes. Back: No midline or flank tenderness. Ext: No cyanosis, or edema.Right proximal forearm hematoma Neur: Awake and alert. No focal deficit Psych: Normal Mood and Affect. Result Diagram: 11/02/16 0031 11/02/16 0031 Results 24 hrs Laboratory Tests Test 11/02/16 00:31 White Blood Count 13.110^3/ul Red Blood Count 3.8710^6/ul Hemoglobin 11.6g/dl Hematocrit 35.5% Mean Corpuscular Volume 91.7fl Mean Corpuscular Hemoglobin 30.0pg Mean Corpuscular Hemoglobin Concent 32.7g/dl Red Cell Distribution Width 14.4% Platelet Count 15952^3/UL Mean Platelet Volume 9.9fl Neutrophils % 70.4% Lymphocytes % 14.2% Monocytes % 11.8% Eosinophils % 2.4% Basophils % 0.4% Nucleated Red Blood Cells % 0.0/100WBC Neutrophils # 9.210^3/ul Lymphocytes # 1.910^3/ul Monocytes # 1.510^3/ul Eosinophils # 0.310^3/ul Basophils # 0.110^3/ul Nucleated Red Blood Cells # 0.010^3/ul Prothrombin Time 12.8Sec Prothrombin Time Ratio 1.0 INR International Normalized Ratio 0.96 Activated Partial Thromboplast Time 37.4Sec Sodium Level 138mmol/L Potassium Level 4.3mmol/L Chloride Level 105mmol/L Carbon Dioxide Level 29mmol/L Anion Gap 8 Blood Urea Nitrogen 30mg/dl Creatinine 1.65mg/dl Glucose Level 105mg/dl Calcium Level 9.1mg/dl Current Medications Medications (Trade) Dose Ordered Sig/Rica Route PRN Reason Start Time Stop Time Status Last Admin Dose Admin Labetalol HCl (Labetalol) 20 mg ONCE ONCE IV 11/03/16 00:00 11/03/16 00:01 DC 11/03/16 00:12 Procedures/[place] [id number] Radiology Main Line: [phone] DIAGNOSTIC IMAGING REPORT Patient: VY JASON : 1955 Age: 61 Sex: M MR #: [id number] DOS: 11/02/16 2349 Ordering MD: BETH LAU MD Location: E/R Room/Bed: PROCEDURE: CT BRAIN WITHOUT CONTRAST CLINICAL INDICATION: 61-year-old male with headaches and trauma. TECHNIQUE: The study was performed utilizing [employer] VCT 64-slice CT scanner. Direct axial sections were obtained from the foramen magnum to the vertex without the use of intravenous contrast material. Sagittal and coronal reformations were obtained. One or more the following dose reduction techniques were utilized: automated exposure control, adjustment of the mA and/or kV according to patient's size or use of iterative reconstruction technique. The images were viewed on a PACS workstation. CTD/vol = 45.0 mGy; Total Exam DLP = 720.2 mGy-cm. COMPARISON: None. FINDINGS: There is mild degree of diffuse cortical and central atrophy with compensatory ventricular enlargement. There is no evidence for mass effect or midline shift. There are periventricular areas of decreased density consistent with microangiopathic ischemic changes. There are multiple old lacunar infarcts identified within the basal ganglia and redman radiata bilaterally. There is no evidence for acute intra or extra-axial blood. Calcifications are seen within the intracranial carotid arteries bilaterally. The bony calvarium is intact. There is mild right frontal scalp soft tissue swelling. There is mild mucosal thickening within the ethmoid air cells and partially visualized left maxillary sinus. No air-fluid levels are noted. The there is minimal soft tissue within the dependent portion of the mastoid air cells presumably representing granulation tissue. IMPRESSION: 1. Mild diffuse atrophy. 2. Microangiopathic ischemic changes. 3. 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 4. Vascular calcifications. 5. Mild right frontal scalp soft tissue swelling. 6. Mucosal thickening ethmoid air cells and partially visualized left maxillary sinus. .Juice Schulz MD, MD Date Time Electronically viewed and signed by .Juice Schulz MD, MD on 11/03/2016 00:47 .M/ CC: BETH LAU MD EKG: Read by emergency physician Rate/Rhythm: Sinus tachycardia 127 beats/min QRS, ST, T-waves: No ST elevation, no T inversion, artifacts Impression: Abnormal EKG MEDICAL MAKING DECISION: The patient is a 61-year-old male, presenting with acute generalized weakness of unclear etiology, acute accelerated hypertension. He was treated with labetalol 20 mg IV for acute excellent hypertension with good response. The differential diagnoses considered include but are not limited to subarachnoid hemorrhage, occult trauma, CVA, meningitis, encephalitis, hypertension, tension, migraine, cluster, narcotic withdrawal, cervical spine disease. Departure Diagnosis: Primary Impression: Fall with no significant injury Additional Impressions: Generalized weakness Accelerated hypertension Anemia Condition: Good Comments I discussed the findings with the patient. I advised the patient to follow-up with the primary physician in about 1-2 days, sooner if needed and return if any concern. BETH LAU MD Nov 02, 2016 23:25
[2016-11-03] MEDS ORDERED: LABETALOL HCL 20MG INJ IV ONE
--- NOTE | 2016-11-03 00:48 | RADRPT ---
PROCEDURE: CT BRAIN WITHOUT CONTRAST CLINICAL INDICATION: 61-year-old male with headaches and trauma. TECHNIQUE: The study was performed utilizing [employer] VCT 64-slice CT scanner. Direct axial sections were obtained from the foramen magnum to the vertex without the use of intravenous contrast material. Sagittal and coronal reformations were obtained. One or more the following dose reduction techniques were utilized: automated exposure control, adjustment of the mA and/or kV according to p atient's size or use of iterative reconstruction technique. The images were viewed on a PACS worksta tion. CTD/vol = 45.0 mGy; Total Exam DLP = 720.2 mGy-cm. COMPARISON: None. FINDINGS: There is mild degree of diffuse cortical and central atrophy with compensatory ventricular enlargeme nt. There is no evidence for mass effect or midline shift. There are periventricular areas of decr eased density consistent with microangiopathic ischemic changes. There are multiple old lacunar inf arcts identified within the basal ganglia and redman radiata bilaterally. There is no evidence for a cute intra or extra-axial blood. Calcifications are seen within the intracranial carotid arteries bi laterally. The bony calvarium is intact. There is mild right frontal scalp soft tissue swelling. The re is mild mucosal thickening within the ethmoid air cells and partially visualized left maxillary s inus. No air-fluid levels are noted. The there is minimal soft tissue within the dependent portion o f the mastoid air cells presumably representing granulation tissue. IMPRESSION: 1. Mild diffuse atrophy. 2. Microangiopathic ischemic changes. 3. 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 4. Vascular calcifications. 5. Mild right frontal scalp soft tissue swelling. 6. Mucosal thickening ethmoid air cells and partially visualized left maxillary sinus. .Juice Schulz MD, MD Date Time Electronically viewed and signed by .Juice Schulz MD, on 11/03/2016 00:47 .M/
[2016-11-03 00:53] LABS: ABNORMAL IP MESSAGE 1; BASOPHIL # 0.1 10^3/ul (0.0-0.1); BASOPHILS % 0.4 % (0.0-2.0); EOSINOPHILS # 0.3 10^3/ul (0.0-0.5); EOSINOPHILS % 2.4 % (0.0-7.0); HEMATOCRIT 35.5 % (42.0-52.0); HEMOGLOBIN 11.6 g/dl (14.0-18.0); LYMPHOCYTES # 1.9 10^3/ul (0.8-2.9); LYMPHOCYTES % 14.2 % (15.0-51.0); MEAN CORPUSCULAR HGB CONC 32.7 g/dl (32.0-37.0); MEAN CORPUSCULAR VOLUME 91.7 fl (82.0-101.0); MEAN PLATELET VOLUME 9.9 fl (7.4-10.4); MONOCYTE # 1.5 10^3/ul (0.3-0.9); MONOCYTES % 11.8 % (0.0-11.0); NEUTROPHIL # 9.2 10^3/ul (1.6-7.5); NEUTROPHILS % 70.4 % (39.0-77.0); PLATELET COUNT 436 10^3/UL (140-415); POSITIVE DIFF @See below; RED BLOOD COUNT 3.87 10^6/ul (4.70-6.10); RED CELL DISTRIBUTION WIDTH 14.4 % (11.5-14.5); WHITE BLOOD COUNT 13.1 10^3/ul (4.8-10.8)
[2016-11-03 01:09] LABS: INR 0.96; PROTIME 12.8 Sec (12.2-14.2)
[2016-11-03 01:10] LABS: PARTIAL THROMBOPLASTIN TIME 37.4 Sec (25.0-35.0)
[2016-11-03 01:12] LABS: CALCIUM 9.1 mg/dl (8.4-10.2); CREATININE 1.65 mg/dl (0.61-1.24); POTASSIUM 4.3 mmol/L (3.5-5.1)
[2016-11-09] MEDS ORDERED: ALBU8.5H3 INH (02:40)
== END 2016-11-03 04:39 | disposition home or self-care (01) ==
LOC: E/R 20:54
DX: R53.1 Weakness (principal); D64.9 Anemia, unspecified; I12.9 Hypertensive chronic kidney disease with stage 1 through stage 4 chronic kidney disease, or unspecified chronic kidney disease; J45.909 Unspecified asthma, uncomplicated; N18.9 Chronic kidney disease, unspecified
CPT/HCPCS: 36415; 70450; 80048; 85025; 85610; 85730; 93005; 96374; Z7502; Z7610

== ENCOUNTER 2016-11-04 00:35 | Inpatient (IN) | payer MEDICAID ==
[~2016-11-04] VITALS: Ht 172.7 cm; Wt 58.8 kg
[2016-11-04] VITALS (14 sets, daily range): BP systolic 154–195; BP diastolic 80–96; PULSE 75–108; RESP 17–20; Ht 172.7 cm; Wt 58.8 kg
--- NOTE | 2016-11-04 00:49 | ERA ---
ER Documentation Chief Complaint Date/Time DATE: 11/04/16 TIME: 00:49 Chief Complaint BIBRA 89 for c/o SB. (+) Expiratory wheeze. HPI The patient is a 61-year-old male, presenting to the ER because of shortness of breath on the street. He was treated by EMS with albuterol 5 mg nebulizer with good response He was seen the hospital yesterday for generalized weakness and had extensive workup. He denies facial pain, neck pain, chest pain, abdominal pain, vomiting, dysuria, diarrhea. He complains of generalized weakness intermittently for more than 2 months, he has a right periorbital ecchymosis from the fall about 1 week ago. He smokes and drinks and denies drinking.He is homeless and noncompliant with his medication Past medical history: Chronic kidney disease, hypertension, asthma, right forearm hematoma from the fall recently Past surgical history: Umbilical herniorrhaphy ROS All systems reviewed and are negative except as per history of present illness. Medications Home Meds Discontinued Scripts Nifedipine (Afeditab CR) 60 Mg Tablet.sa, 60 MG PO DAILY for 14 Days, #20 Prov:ZULEYKA MILLAN MD 10/17/16 Allergies Allergies: Coded Allergies: aspirin (Unverified Allergy, Severe, NAUSEA ; VOMITTING, 11/03/16) PMhx/Soc Anesthesia Reaction: No Hx Neurological Disorder: No Hx Respiratory Disorders: Yes (asthma) Hx Cardiac Disorders: No Hx Psychiatric Problems: No Hx Miscellaneous Medical Probl: Yes (diverticulitis) Hx Alcohol Use: No Hx Substance Use: No Hx Tobacco Use: Yes Smoking Status: Current every day smoker Physical Exam Vitals Vital Signs Date Time Temp Pulse Resp B/P Pulse Ox O2 Delivery O2 Flow Rate FiO2 11/04/16 04:00 96 18 161/106 97 Room Air 11/04/16 01:59 118 22 184/96 97 Room Air 11/04/16 00:37 98.0 125 24 165/108 97 Physical Exam Const: No acute distress. Head: Atraumatic. Eyes: Normal Conjunctiva. ENT: Normal External Ears, Nose and Mouth. Neck: Full range of motion. No meningismus. Resp: Bibasilar crackle Cardio: Regular Tachycardic Abd: Soft, non distended, normal bowel sounds, non tender. Skin: No petechiae or rashes. Back: No midline or flank tenderness. Ext: Bilateral leg edema, no calf tenderness Neur: Awake and alert. No focal deficit Psych: Normal Mood and Affect. Result Diagram: 11/04/169911/04/1699 Results 24 hrs Laboratory Tests Test 11/04/16 01:00 White Blood Count 13.810^3/ul Red Blood Count 3.7310^6/ul Hemoglobin 11.3g/dl Hematocrit 34.6% Mean Corpuscular Volume 92.8fl Mean Corpuscular Hemoglobin 30.3pg Mean Corpuscular Hemoglobin Concent 32.7g/dl Red Cell Distribution Width 14.6% Platelet Count 18304^3/UL Mean Platelet Volume 9.8fl Neutrophils % 60.4% Lymphocytes % 21.8% Monocytes % 12.6% Eosinophils % 3.8% Basophils % 0.4% Nucleated Red Blood Cells % 0.0/100WBC Neutrophils # 8.410^3/ul Lymphocytes # 3.010^3/ul Monocytes # 1.810^3/ul Eosinophils # 0.510^3/ul Basophils # 0.110^3/ul Nucleated Red Blood Cells # 0.010^3/ul Prothrombin Time 12.8Sec Prothrombin Time Ratio 1.0 INR International Normalized Ratio 0.96 Activated Partial Thromboplast Time 36.9Sec Sodium Level 143mmol/L Potassium Level 4.1mmol/L Chloride Level 107mmol/L Carbon Dioxide Level 28mmol/L Anion Gap 12 Blood Urea Nitrogen 25mg/dl Creatinine 1.59mg/dl Glucose Level 129mg/dl Calcium Level 9.0mg/dl Total Bilirubin 0.2mg/dl Direct Bilirubin 0.00mg/dl Indirect Bilirubin 0.2mg/dl Aspartate Amino Transf (AST/SGOT) 30IU/L Alanine Aminotransferase (ALT/SGPT) 36IU/L Alkaline Phosphatase 166IU/L Troponin I 0.018ng/ml B-Type Natriuretic Peptide 1560PG/ML Total Protein 6.8g/dl Albumin 3.5g/dl Globulin 3.30g/dl Albumin/Globulin Ratio 1.06 Ethyl Alcohol Level < 10.0mg/dl Current Medications Medications (Trade) Dose Ordered Sig/Rica Route PRN Reason Start Time Stop Time Status Last Admin Dose Admin Labetalol HCl (Labetalol) 10 mg ONCE ONCE IV 11/04/16 02:00 11/04/16 02:01 DC 11/04/16 01:59 Furosemide (Lasix) 40 mg ONCE ONCE IV 11/04/16 03:30 11/04/16 03:31 DC 11/04/16 03:55 Procedures/MDM [place] [id number] [place] [id number] Radiology Main Line: [phone] DIAGNOSTIC IMAGING REPORT Patient: VY JASON : 1955 Age: 61 Sex: M MR #: [id number] DOS: 11/04/16 0058 Ordering MD: BETH LAU MD Location: E/R Room/Bed: PROCEDURE: XR Chest. CLINICAL INDICATION: Dyspnea. TECHNIQUE: Single frontal view of the chest. COMPARISON: 10/13/2016. FINDINGS: The cardiomediastinal silhouette is within normal limits. Elevated left hemidiaphragm. The lungs are clear. No signs of pleural fluid or pneumothorax are seen. The osseous structures and soft tissues are unremarkable. IMPRESSION: No evidence for active cardiopulmonary disease. RPTAT: [facility] Physician Asael Date Time Electronically viewed and signed by Physician Asael on 11/04/2016 01:58 RS/ CC: BETH LAU MD EKG: Read by emergency physician Rate/Rhythm: Sinus tachycardia 119 beats/min QRS, ST, T-waves: No ST elevation, no T inversion, Anteroseptal Q waves Impression: Abnormal EKG MEDICAL MAKING DECISION: The patient is a 61-year-old male, presenting with acute CHF exacerbation, acute accelerated hypertension. She was treated with labetalol and 10 mg IV 2 for acute accelerated hypertension and Lasix 40 mg IV for acute CHF with good response The differential diagnoses considered include but are not limited to asthma, COPD, pneumonia, pulmonary embolus, pleural effusion, congestive heart failure. Departure Diagnosis: Primary Impression: CHF (congestive heart failure) Additional Impressions: Accelerated hypertension Anemia Condition: Stable Comments I discussed the findings with the patient. I discussed the patient the on-call hospitalist Dr. Johnson at 3:30 AM. who was made aware of the lab, the treatment, the patient condition. The patient is admitted to telemetry Urine drug screen is pending BETH LAU MD Nov 04, 2016 00:49
[2016-11-04 01:26] LABS: ABNORMAL IP MESSAGE 1; BASOPHIL # 0.1 10^3/ul (0.0-0.1); BASOPHILS % 0.4 % (0.0-2.0); EOSINOPHILS # 0.5 10^3/ul (0.0-0.5); EOSINOPHILS % 3.8 % (0.0-7.0); HEMATOCRIT 34.6 % (42.0-52.0); HEMOGLOBIN 11.3 g/dl (14.0-18.0); LYMPHOCYTES % 21.8 % (15.0-51.0); MEAN CORPUSCULAR HEMOGLOBIN 30.3 pg (29.0-33.0); MEAN CORPUSCULAR HGB CONC 32.7 g/dl (32.0-37.0); MEAN CORPUSCULAR VOLUME 92.8 fl (82.0-101.0); MEAN PLATELET VOLUME 9.8 fl (7.4-10.4); MONOCYTE # 1.8 10^3/ul (0.3-0.9); MONOCYTES % 12.6 % (0.0-11.0); NEUTROPHIL # 8.4 10^3/ul (1.6-7.5); NEUTROPHILS % 60.4 % (39.0-77.0); PLATELET COUNT 426 10^3/UL (140-415); POSITIVE DIFF @See below; RED BLOOD COUNT 3.73 10^6/ul (4.70-6.10); RED CELL DISTRIBUTION WIDTH 14.6 % (11.5-14.5); WHITE BLOOD COUNT 13.8 10^3/ul (4.8-10.8)
[2016-11-04 01:40] LABS: INR 0.96; PROTIME 12.8 Sec (12.2-14.2)
[2016-11-04 01:41] LABS: PARTIAL THROMBOPLASTIN TIME 36.9 Sec (25.0-35.0)
--- NOTE | 2016-11-04 01:58 | RADRPT ---
PROCEDURE: XR Chest. CLINICAL INDICATION: Dyspnea. TECHNIQUE: Single frontal view of the chest. COMPARISON: 10/13/2016. FINDINGS: The cardiomediastinal silhouette is within normal limits. Elevated left hemidiaphragm. The lungs are clear. No signs of pleural fluid or pneumothorax are seen. The osseous structures and soft tissues are unremarkable. IMPRESSION: No evidence for active cardiopulmonary disease. RPTAT: [facility] Physician Asael Date Time Electronically viewed and signed by Sherrie Bentley Physician on 11/04/2016 01:58 RS/
[2016-11-04] MEDS ORDERED: LABETALOL HCL 20MG INJ IV ONE (02:00)
[2016-11-04 02:13] LABS: ALANINE AMINOTRANSFERASE 36 IU/L (13-69); ALBUMIN 3.5 g/dl (3.3-4.9); ALBUMIN/GLOBULIN RATIO 1.06; ALKALINE PHOSPHATASE 166 IU/L (42-121); ANION GAP 12 (8-16); ASPARTATE AMINO TRANSFERASE 30 IU/L (15-46); BILIRUBIN,INDIRECT 0.2 mg/dl (0-1.1); BILIRUBIN,TOTAL 0.2 mg/dl (0.2-1.3); BLOOD UREA NITROGEN 25 mg/dl (7-20); CARBON DIOXIDE 28 mmol/L (21-31); CHLORIDE 107 mmol/L (97-110); CREATININE 1.59 mg/dl (0.61-1.24); ETHANOL < 10.0 mg/dl; GLUCOSE 129 mg/dl (70-220); POTASSIUM 4.1 mmol/L (3.5-5.1); SODIUM 143 mmol/L (135-144); TOTAL PROTEIN 6.8 g/dl (6.1-8.1)
[2016-11-04 02:23] LABS: B-TYPE NATRIURETIC PEPTIDE 1560 PG/ML (0-125); TROPONIN-I 0.018 ng/ml (0.00-0.12)
[2016-11-04] MEDS ORDERED: FUROSEMIDE 40 MG INJ IV ONE (03:30)
[2016-11-04] MEDS ORDERED: LEVALBUTEROL (NEB) 0.63 MG/3 ML AMP HHN PRN ×2 (04:30→07:00)
[2016-11-04] MEDS ORDERED: ONDANSETRON 4 MG INJ IV PRN (04:30)
[2016-11-04] MEDS ORDERED: IPRATROPIUM (NEB) 0.5 MG/2.5 ML AMP NEB PRN (04:30)
[2016-11-04] MEDS ORDERED: ACETAMINOPHEN 325 MG TAB PO PRN (04:30)
[2016-11-04] MEDS ORDERED: NACL 0.9% 3 ML SYG IV SCH (04:30)
[2016-11-04] MEDS ORDERED: LABETALOL HCL 20MG INJ IV PRN (06:00)
[2016-11-04] MEDS: METOPROLOL 25 MG TAB PO SCH ×2 (06:23→08:58)
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
[2016-11-04] MEDS: HEPARIN 5,000 UNIT/0.5 ML VIAL SC SCH ×2 (08:59→20:12)
[2016-11-04] MEDS ORDERED: METHYLPREDNISOLONE 125 MG INJ IV SCH (09:00)
[2016-11-04] MEDS ORDERED: METOPROLOL 25 MG TAB PO SCH (09:00)
[2016-11-04] MEDS: TRIMETHOPRIM/SULFAMETHOX (DS) TAB PO SCH ×2 (11:37→20:08)
[2016-11-04] MEDS: SALMETEROL/FLUTICASONE 250/50 INHA INH SCH ×2 (11:45→20:09)
[2016-11-04] MEDS: AMLODIPINE 5 MG TAB PO SCH (16:14)
--- NOTE | 2016-11-04 16:40 | RADRPT ---
PROCEDURE: Right upper extremity venous ultrasound CLINICAL INDICATION: Right arm pain and swelling, deep venous thrombosis TECHNIQUE: Reid scale, color doppler, spectral doppler ultrasound imaging of the venous system of the right upper extremity. Augmentation maneuvers were utilized. COMPARISON: No prior studies are available for comparison. FINDINGS: RIGHT: Internal jugular vein: Patent. Subclavian vein: Patent. Axillary vein: Patent. Brachial vein: Patent. Basilic vein: Patent. Cephalic vein: Patent. Radial vein: Patent. Ulnar vein: Patent. 7.1 x 1.7 x 5.8 cm hypoechoic area identified in the lateral aspect of the right forearm may represe nt a chronic hematoma, cellulitis, or developing abscess. IMPRESSION: No evidence of a deep vein thrombosis involving the right upper extremity. 7.1 x 1.7 x 5.8 cm hypoechoic area identified in the lateral aspect of the right forearm may represe nt a chronic hematoma, cellulitis, or developing abscess. Recommend correlation with physical exam f indings. RPTAT: AADD .Abhishek Coronado MD, Date Time Electronically viewed and signed by .Abhishek Coronado MD, on 11/04/2016 16:39 .B/
[2016-11-04] MEDS: hydrALAzine 20 MG INJ IV PRN (17:07)
[2016-11-04] MEDS: METHYLPREDNISOLONE 125 MG INJ IV SCH ×2 (17:48→23:11)
[2016-11-04] MEDS: morphine 2 MG INJ IV PRN ×2 (18:07→23:07)
[2016-11-04] MEDS ORDERED: GABAPENTIN 300 MG CAP PO PRN (21:30)
[2016-11-05] VITALS (12 sets, daily range): BP systolic 137–172; BP diastolic 73–92; PULSE 75–131; RESP 19–20
[2016-11-05 02:18] LABS: CANNABINOIDS Negative (NEGATIVE)
[2016-11-05 02:19] LABS: BARBITURATES Negative (NEGATIVE); BENZODIAZEPINES Negative (NEGATIVE); COCAINE Negative (NEGATIVE); OPIATES Positive (NEGATIVE)
[2016-11-05] MEDS: METHYLPREDNISOLONE 125 MG INJ IV SCH ×2 (05:06→09:14)
[2016-11-05 07:56] LABS: BASOPHILS % 0.1 % (0.0-2.0); HEMOGLOBIN 11.5 g/dl (14.0-18.0); LYMPHOCYTES # 0.9 10^3/ul (0.8-2.9); LYMPHOCYTES % 7.4 % (15.0-51.0); MEAN CORPUSCULAR HEMOGLOBIN 29.7 pg (29.0-33.0); MEAN CORPUSCULAR HGB CONC 32.9 g/dl (32.0-37.0); MEAN CORPUSCULAR VOLUME 90.4 fl (82.0-101.0); MEAN PLATELET VOLUME 10.1 fl (7.4-10.4); MONOCYTE # 0.1 10^3/ul (0.3-0.9); MONOCYTES % 0.8 % (0.0-11.0); NEUTROPHIL # 10.7 10^3/ul (1.6-7.5); NEUTROPHILS % 90.8 % (39.0-77.0); PLATELET COUNT 429 10^3/UL (140-415); RED BLOOD COUNT 3.87 10^6/ul (4.70-6.10); RED CELL DISTRIBUTION WIDTH 14.2 % (11.5-14.5); WHITE BLOOD COUNT 11.8 10^3/ul (4.8-10.8)
[2016-11-05 08:23] LABS: ALBUMIN 3.3 g/dl (3.3-4.9); ALBUMIN/GLOBULIN RATIO 1.03; BILIRUBIN,INDIRECT 0.2 mg/dl (0-1.1); BILIRUBIN,TOTAL 0.2 mg/dl (0.2-1.3); CALCIUM 9.1 mg/dl (8.4-10.2); CREATININE 1.74 mg/dl (0.61-1.24); MAGNESIUM 2.4 mg/dl (1.7-2.5); POTASSIUM 4.7 mmol/L (3.5-5.1); TOTAL PROTEIN 6.5 g/dl (6.1-8.1)
[2016-11-05] MEDS: SALMETEROL/FLUTICASONE 250/50 INHA INH SCH ×2 (09:13→20:10)
[2016-11-05] MEDS: AMLODIPINE 5 MG TAB PO SCH (09:14)
[2016-11-05] MEDS: TRIMETHOPRIM/SULFAMETHOX (DS) TAB PO SCH ×2 (09:14→20:10)
[2016-11-05] MEDS: HEPARIN 5,000 UNIT/0.5 ML VIAL SC SCH (09:26)
--- NOTE | 2016-11-05 12:07 | PN ---
Date/Time of Note Date/Time of Note DATE: 11/05/16 TIME: 12:04 Assessment/Plan VTE Prophylaxis VTE Prophylaxis Intervention: SCD's Lines/Catheters [facility] Saline Lock Urinary Cath still in place: No Exam/Review of Systems Vital Signs Vitals Vital Signs Date Time Temp Pulse Resp B/P Pulse Ox O2 Delivery O2 Flow Rate FiO2 11/05/16 08:15 75 11/05/16 07:38 98.1 20 163/91 95 11/04/16 23:23 Room Air 11/04/16 16:42 21 Intake and Output 11/04/16 11/04/16 11/05/16 15:00 23:00 07:00 Intake Total 1400 ml 300 ml Output Total 1510 ml Balance -110 ml 300 ml Exam Constitutional: other (Sleepy but arousable) Head: atraumatic, normocephalic Respiratory: clear to auscultation, normal air movement Cardiovascular: other (Tachycardic with regular rhythm) Gastrointestinal: non-tender, soft Musculoskeletal: other (There is swelling and skin changes in the right forearm ) Extremities: edema Results Result Diagram: 11/05/1671811/05/16718 Results 24 hrs Laboratory Tests Test 11/05/16 00:05 11/05/16 07:19 Urine Opiates Screen Positive Urine Barbiturates Negative Urine Amphetamines Screen Negative Urine Benzodiazepines Screen Negative Urine Cocaine Screen Negative Urine Cannabinoids Negative White Blood Count 11.8 H Red Blood Count 3.87 L Hemoglobin 11.5 L Hematocrit 35.0 L Mean Corpuscular Volume 90.4 Mean Corpuscular Hemoglobin 29.7 Mean Corpuscular Hemoglobin Concent 32.9 Red Cell Distribution Width 14.2 Platelet Count 429 H Mean Platelet Volume 10.1 Neutrophils % 90.8 H Lymphocytes % 7.4 L Monocytes % 0.8 Eosinophils % 0.0 Basophils % 0.1 Nucleated Red Blood Cells % 0.0 Neutrophils # 10.7 H Lymphocytes # 0.9 Monocytes # 0.1 L Eosinophils # 0.0 Basophils # 0.0 Nucleated Red Blood Cells # 0.0 Sodium Level 140 Potassium Level 4.7 Chloride Level 105 Carbon Dioxide Level 28 Anion Gap 12 Blood Urea Nitrogen 30 H Creatinine 1.74 H Glucose Level 137 Calcium Level 9.1 Phosphorus Level 4.3 Magnesium Level 2.4 Total Bilirubin 0.2 Direct Bilirubin 0.00 Indirect Bilirubin 0.2 Aspartate Amino Transf (AST/SGOT) 31 Alanine Aminotransferase (ALT/SGPT) 35 Alkaline Phosphatase 144 H Total Protein 6.5 Albumin 3.3 Globulin 3.20 Albumin/Globulin Ratio 1.03 Medications Medications Current Medications Ondansetron HCl (Zofran Inj) 4 mg Q6H PRN IV NAUSEA AND/OR VOMITING; Start at 04:30 Acetaminophen (Tylenol Tab) 650 mg Q6H PRN PO PAIN LEVEL 1-3 OR FEVER; Start at 04:30 Morphine Sulfate (morphine) 2 mg Q4H PRN IV PAIN LEVEL 7-10 Last administered on 11/04/16 23:07; Admin Dose 2 MG; Start 11/04/16 at 04:30 Heparin Sodium (Porcine) (Heparin (5000 Units/0.5 ml)) 5,000 unit Q12 SC Last administered on 11/05/16 09:26; Admin Dose 5,000 UNIT; Start 11/04/16 at 09:00 Salmeterol Xinafoate/ Fluticasone (Advair 250/50 Diskus) 1 inh Q12 INH Last administered on 11/05/16 09:13; Admin Dose 1 INH; Start 11/04/16 at 09:00 Labetalol HCl (Labetalol) 10 mg Q4H PRN IV ELEVATED SYSTOLIC BP Last administered on 11/04/16 12:35; Admin Dose 10 MG; Start 11/04/16 at 06:00 Metoprolol Tartrate (Lopressor) 25 mg BID PO Last administered on 11/04/16 08: 58; Admin Dose 25 MG; Start 11/04/16 at 06:01; Status Future Hold Miscellaneous Information Patients own medicat... BID@,16 XX Last administered on 11/05/16 09:14; Admin Dose 1 EA; Start 11/04/16 at 10:00 Trimethoprim/ Sulfamethoxazole (Bactrim (Ds)) 1 tab BID PO Last administered on 11/05/16 09:14; Admin Dose 1 TAB; Start 11/04/16 at 09:00 Amlodipine Besylate (Norvasc) 5 mg DAILY PO Last administered on 11/05/16 09: 14; Admin Dose 5 MG; Start 9/16/17 at 16:00 Hydralazine HCl (Apresoline) 10 mg Q6H PRN IV SBP GREATER THAN 160 Last administered on 11/04/16 17:07; Admin Dose 10 MG; Start 11/04/16 at 16:00 Methylprednisolone Sodium Succinate (Solu-Medrol) 60 mg Q6 IV Last administered on 11/05/16 05:06; Admin Dose 60 MG; Start 11/04/16 at 18:00 Gabapentin (Neurontin) 300 mg TID PRN PO PAIN Last administered on 11/04/16 21 :20; Admin Dose 300 MG; Start 11/04/16 at 21:30 VICENTE QUEEN Nov 05, 2016 12:07
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
[2016-11-05] MEDS: HYDROCHLOROTHIAZIDE 25 MG TAB PO SCH (12:37)
[2016-11-05] MEDS ORDERED: LEVOFLOXACIN 750MG/D5W (PMX) 150 ML IVPB SCH (13:30)
[2016-11-05] MEDS: morphine 2 MG INJ IV PRN ×2 (14:57→20:13)
[2016-11-05] MEDS: hydrALAzine 20 MG INJ IV PRN (14:57)
--- NOTE | 2016-11-05 15:04 | RADRPT ---
PROCEDURE: XR Right Forearm. CLINICAL INDICATION: Trauma. Right forearm pain. TECHNIQUE: AP and lateral views of the right forearm were obtained. COMPARISON: No prior studies are available for comparison. FINDINGS: There is no fracture or dislocation. There is marked soft tissue swelling in the proximal forearm posteriorly laterally. The soft tissues are otherwise normal. Articular surfaces are intact. There is no lytic or blastic lesion. There is no radiopaque foreign body. IMPRESSION: 1. Marked soft tissue swelling in the proximal forearm posteriorly laterally. 2. Otherwise unremarkable images of the right forearm. RPTAT: QQ .Han Juares MD, MD Date Time Electronically viewed and signed by .Han Juares MD, on 11/05/2016 15:03 .R/
[2016-11-05] MEDS: PANTOPRAZOLE (EC) 40 MG TAB PO SCH (18:17)
[2016-11-06] VITALS (12 sets, daily range): BP systolic 158–180; BP diastolic 74–109; PULSE 79–103; RESP 16–20
[2016-11-06] MEDS: PANTOPRAZOLE (EC) 40 MG TAB PO SCH ×2 (00:09→06:25)
[2016-11-06 08:19] LABS: ABNORMAL IP MESSAGE 1; BASOPHILS % 0.2 % (0.0-2.0); HEMATOCRIT 32.6 % (42.0-52.0); HEMOGLOBIN 10.4 g/dl (14.0-18.0); LYMPHOCYTES # 3.1 10^3/ul (0.8-2.9); LYMPHOCYTES % 13.3 % (15.0-51.0); MEAN CORPUSCULAR HGB CONC 31.9 g/dl (32.0-37.0); MEAN CORPUSCULAR VOLUME 90.8 fl (82.0-101.0); MEAN PLATELET VOLUME 10.2 fl (7.4-10.4); MONOCYTE # 1.6 10^3/ul (0.3-0.9); MONOCYTES % 7.1 % (0.0-11.0); NEUTROPHIL # 18.1 10^3/ul (1.6-7.5); NEUTROPHILS % 78.2 % (39.0-77.0); PLATELET COUNT 426 10^3/UL (140-415); POSITIVE DIFF @See below; RED BLOOD COUNT 3.59 10^6/ul (4.70-6.10); RED CELL DISTRIBUTION WIDTH 14.6 % (11.5-14.5); WHITE BLOOD COUNT 23.2 10^3/ul (4.8-10.8)
[2016-11-06 08:43] LABS: CALCIUM 8.8 mg/dl (8.4-10.2); CREATININE 1.82 mg/dl (0.61-1.24); POTASSIUM 4.4 mmol/L (3.5-5.1)
[2016-11-06 08:59] LABS: MAGNESIUM 2.2 mg/dl (1.7-2.5); PHOSPHORUS 4.6 mg/dl (2.5-4.9)
[2016-11-06] MEDS ORDERED: predniSONE 20 MG TAB PO SCH (09:00)
[2016-11-06] MEDS: TRIMETHOPRIM/SULFAMETHOX (DS) TAB PO SCH (09:17)
[2016-11-06] MEDS: HYDROCHLOROTHIAZIDE 25 MG TAB PO SCH (09:17)
[2016-11-06] MEDS: SALMETEROL/FLUTICASONE 250/50 INHA INH SCH ×2 (09:17→21:25)
[2016-11-06] MEDS: AMLODIPINE 5 MG TAB PO SCH (09:18)
[2016-11-06] MEDS: HYDROCODONE/APAP (5/325) TAB PO PRN (15:31)
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
[2016-11-06] MEDS: morphine 2 MG INJ IV PRN ×2 (18:44→22:39)
[2016-11-06] MEDS: METOPROLOL 50 MG TAB PO SCH (19:59)
[2016-11-06] MEDS ORDERED: METOPROLOL 50 MG TAB PO SCH (21:00)
[2016-11-06] MEDS ORDERED: hydrALAzine 20 MG INJ IV PRN ×2 (21:30)
[2016-11-07 00:13] VITALS: BP 133/76; RESP 16
[2016-11-07 02:07] VITALS: BP 135/73; RESP 16
[2016-11-07 05:26] LABS: ABNORMAL IP MESSAGE 1; BASOPHILS % 0.2 % (0.0-2.0); HEMATOCRIT 34.2 % (42.0-52.0); HEMOGLOBIN 11.2 g/dl (14.0-18.0); LYMPHOCYTES # 2.8 10^3/ul (0.8-2.9); LYMPHOCYTES % 13.2 % (15.0-51.0); MEAN CORPUSCULAR HEMOGLOBIN 29.9 pg (29.0-33.0); MEAN CORPUSCULAR HGB CONC 32.7 g/dl (32.0-37.0); MEAN CORPUSCULAR VOLUME 91.4 fl (82.0-101.0); MEAN PLATELET VOLUME 9.9 fl (7.4-10.4); MONOCYTE # 1.7 10^3/ul (0.3-0.9); MONOCYTES % 8.1 % (0.0-11.0); NEUTROPHIL # 15.9 10^3/ul (1.6-7.5); PLATELET COUNT 432 10^3/UL (140-415); POSITIVE DIFF @See below; RED BLOOD COUNT 3.74 10^6/ul (4.70-6.10); RED CELL DISTRIBUTION WIDTH 14.4 % (11.5-14.5); WHITE BLOOD COUNT 20.9 10^3/ul (4.8-10.8)
[2016-11-07] MEDS: PANTOPRAZOLE (EC) 40 MG TAB PO SCH (06:20)
[2016-11-07 06:21] LABS: CALCIUM 8.9 mg/dl (8.4-10.2); CREATININE 2.04 mg/dl (0.61-1.24); POTASSIUM 4.5 mmol/L (3.5-5.1)
[2016-11-07 07:36] VITALS: BP 158/71; RESP 19
[2016-11-07] MEDS: predniSONE 20 MG TAB PO SCH (08:24)
[2016-11-07] MEDS: AZITHROMYCIN 250 MG TAB PO SCH (08:24)
[2016-11-07] MEDS: SALMETEROL/FLUTICASONE 250/50 INHA INH SCH ×2 (08:24→20:15)
[2016-11-07] MEDS: METOPROLOL 50 MG TAB PO SCH ×2 (08:24→20:15)
[2016-11-07] MEDS: morphine 2 MG INJ IV PRN ×2 (10:42→18:50)
[2016-11-07] MEDS: HYDROCODONE/APAP (5/325) TAB PO PRN (14:03)
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
--- NOTE | 2016-11-07 17:49 | RADRPT ---
PROCEDURE: Renal US. CLINICAL INDICATION: Renal dysfunction. TECHNIQUE: Multiple sonographic images of the kidneys and urinary bladder were obtained. The imag es were reviewed on a PACS workstation. COMPARISON: No prior studies are available for comparison. FINDINGS: The right kidney measures 8.2 x 3.7 x 3.9 cm. The left kidney measures 0.2 x 4.2 x 3.8 cm. There is no solid renal mass. There is a benign cyst in the mid right kidney measuring .7 x 1.2 cm. There is a benign cyst in the upper right kidney measuring 3.3 x 2.9 cm. A benign cyst is present in the upper left kidney measuring 2.7 x 2.7 cm and a benign cyst is present in the mid left kidney me asuring 1.4 cm. There is no hydronephrosis. There is no renal calculus. Renal parenchymal thickness is normal bilaterally. Echogenicity is normal bilaterally. The perirenal regions are normal with no fluid collection or mass. The urinary bladder is unremarkable. IMPRESSION: 1. Benign bilateral renal cysts. 2. No hydronephrosis. 3. Otherwise normal renal ultrasound. RPTAT: QQ .Han Juares MD, Date Time Electronically viewed and signed by .Han Juares MD, MD on 11/07/2016 17:49 .R/
[2016-11-07 20:31] VITALS: BP 173/95; RESP 20
[2016-11-07 22:34] LABS: ADD UMIC NO; UR ASCORBIC ACID NEGATIVE (NEGATIVE); UR BILIRUBIN (Dip) NEGATIVE (NEGATIVE); UR BLOOD (Dip) NEGATIVE (NEGATIVE); UR CLARITY CLEAR (CLEAR); UR COLOR YELLOW (YELLOW); UR GLUCOSE (Dip) NEGATIVE (NEGATIVE); UR KETONES (Dip) NEGATIVE (NEGATIVE); UR LEUKOCYTE ESTERASE (Dip) NEGATIVE Leu/ul (NEGATIVE); UR NITRITE (Dip) NEGATIVE (NEGATIVE); UR SPECIFIC GRAVITY (Dip) 1.017 (1.003-1.030); UR TOTAL PROTEIN (Dip) NEGATIVE (NEGATIVE); UR UROBILINOGEN (Dip) NEGATIVE (NEGATIVE)
[2016-11-08 01:59] VITALS: BP 154/87; RESP 20
[2016-11-08 05:18] LABS: ABNORMAL IP MESSAGE 1; BASOPHIL # 0.1 10^3/ul (0.0-0.1); BASOPHILS % 0.3 % (0.0-2.0); EOSINOPHILS % 0.1 % (0.0-7.0); LYMPHOCYTES # 3.9 10^3/ul (0.8-2.9); MEAN CORPUSCULAR HEMOGLOBIN 29.4 pg (29.0-33.0); MEAN CORPUSCULAR HGB CONC 32.4 g/dl (32.0-37.0); MEAN CORPUSCULAR VOLUME 90.9 fl (82.0-101.0); MEAN PLATELET VOLUME 10.1 fl (7.4-10.4); MONOCYTE # 1.9 10^3/ul (0.3-0.9); MONOCYTES % 8.8 % (0.0-11.0); NEUTROPHIL # 14.8 10^3/ul (1.6-7.5); NEUTROPHILS % 68.1 % (39.0-77.0); PLATELET COUNT 448 10^3/UL (140-415); POSITIVE DIFF @See below; RED BLOOD COUNT 3.74 10^6/ul (4.70-6.10); RED CELL DISTRIBUTION WIDTH 14.6 % (11.5-14.5); WHITE BLOOD COUNT 21.7 10^3/ul (4.8-10.8)
[2016-11-08] MEDS: PANTOPRAZOLE (EC) 40 MG TAB PO SCH (05:31)
[2016-11-08 05:32] LABS: CALCIUM 8.6 mg/dl (8.4-10.2); CREATININE 1.78 mg/dl (0.61-1.24); POTASSIUM 4.6 mmol/L (3.5-5.1)
[2016-11-08] MEDS: HYDROCODONE/APAP (5/325) TAB PO PRN (05:33)
[2016-11-08 07:32] VITALS: BP 162/100; RESP 18
[2016-11-08] MEDS: METOPROLOL 50 MG TAB PO SCH (08:23)
[2016-11-08] MEDS: AZITHROMYCIN 250 MG TAB PO SCH (08:23)
[2016-11-08] MEDS: predniSONE 20 MG TAB PO SCH (08:23)
[2016-11-08] MEDS: SALMETEROL/FLUTICASONE 250/50 INHA INH SCH (08:23)
[2016-11-08] MEDS: morphine 2 MG INJ IV PRN (10:02)
[2016-11-08] MEDS ORDERED: METO-429 PO (12:51)
[2016-11-08] MEDS ORDERED: PRED20TA PO (12:51)
[2016-11-08] MEDS ORDERED: AZIT250T6 PO (12:51)
[2016-11-08] MEDS ORDERED: ADV25050 INH (12:51)
[2016-11-08] MEDS ORDERED: ACET325T45 PO (12:52)
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
[2016-11-08] MEDS ORDERED: ALBU90AE INHALATION (13:03)
--- NOTE | 2016-11-08 13:06 | PDOCDIS ---
Discharge Instructions DIAGNOSIS Discharge Diagnosis COPD exacerbation, hypertension, acute on chronic kidney injury CONDITION Patient Condition: Stable HOME CARE INSTRUCTIONS: Special Diet: Regular diet FOLLOW UP/APPOINTMENTS Follow-up Plan Please see your regular doctor or use the resources from the case filler to see a regular doctor within 1 week for your blood pressure and to check your kidney function and your arm hematoma DANGELO PIPER MD Nov 08, 2016 13:06
[2016-11-08 14:03] VITALS: BP 171/94; RESP 18
[2016-11-09] MEDS ORDERED: ALBU8.5H3 INH (02:40)
== END 2016-11-08 16:00 | disposition home or self-care (01) | DRG 191 ==
LOC: E/R 00:35 → MS4 03:29 → MS1 11-06 14:50
PROVIDERS: ADMIT Internal Medicine; ATTEND Internal Medicine
DX: J44.1 Chronic obstructive pulmonary disease with (acute) exacerbation (principal); N17.9 Acute kidney failure, unspecified; I13.0 Hypertensive heart and chronic kidney disease with heart failure and stage 1 through stage 4 chronic kidney disease, or unspecified chronic kidney disease; I50.9 Heart failure, unspecified; K58.9 Irritable bowel syndrome, unspecified; N18.9 Chronic kidney disease, unspecified; F17.210 Nicotine dependence, cigarettes, uncomplicated; S50.10XA Contusion of unspecified forearm, initial encounter; V79.88XA Bus occupant (driver) (passenger) injured in other specified transport accidents, initial encounter; Y93.89 Activity, other specified; Y92.414 Local residential or business street as the place of occurrence of the external cause; Y99.8 Other external cause status; Z59.0 Homelessness
CPT/HCPCS: 36415; 71010; 76775; 80048; 80053; 80306; 80307; 81003; 83735; 83880; 84100; 84155; 84300; 84484; 85025; 85610; 85730; 93005; 93971; 96374; 96375; 97164; J0360; J1644; J1940; J1956; J2270; J2930; J7512

== ENCOUNTER 2016-11-10 14:35 | Emergency (ER) | payer SELFPAY ==
[~2016-11-10] VITALS: Wt 78.0 kg
[~2016-11-10 14:35] MED LIST changes: +ACET325T45 PO; +ADV25050 INH; +ALBU8.5H3 INH; +ALBU90AE INHALATION; +AZIT250T6 PO; +METO-429 PO; -NIFE60TA7 PO; +PRED20TA PO
== END 2016-11-10 20:00 | disposition left against medical advice (07) ==
LOC: E/R 14:35
DX: Z53.21 Procedure and treatment not carried out due to patient leaving prior to being seen by health care provider (principal)

== ENCOUNTER 2016-11-18 04:33 | Emergency (ER) | payer MEDICAID ==
[~2016-11-18] VITALS: Ht 172.7 cm; Wt 59.1 kg
[2016-11-18 04:41] VITALS: Ht 172.7 cm; Wt 59.1 kg
[2016-11-18 04:44] VITALS: TEMP 98.4
[2016-11-18] MEDS ORDERED: ALBUTEROL 0.083% (NEB) 2.5 MG/3 ML AMP HHN ONE (04:57)
[2016-11-18] MEDS ORDERED: predniSONE 20 MG TAB PO ONE (05:00)
[2016-11-18] MEDS ORDERED: IPRATROPIUM (NEB) 0.5 MG/2.5 ML AMP HHN ONE (05:00)
[2016-11-18] MEDS ORDERED: PRED20TA PO (06:06)
[2016-11-18] MEDS ORDERED: ALBU18HF INHALATION (06:06)
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
[2016-11-18 07:10] VITALS: BP 128/68; PULSE 101; RESP 18
== END 2016-11-18 07:10 | disposition home or self-care (01) ==
LOC: E/R 04:33
DX: J45.901 Unspecified asthma with (acute) exacerbation (principal); I10 Essential (primary) hypertension; F17.210 Nicotine dependence, cigarettes, uncomplicated
CPT/HCPCS: 93005; 94664; J7512; Z7502; Z7610

== ENCOUNTER 2016-11-20 19:08 | Inpatient (IN) | payer MEDICAID ==
[~2016-11-20] VITALS: Ht 160 cm; Wt 69.5 kg
[~2016-11-20 19:08] MED LIST changes: +ALBU18HF INHALATION
[2016-11-20 19:31] VITALS: Ht 160 cm; Wt 69.5 kg
[2016-11-21] VITALS (15 sets, daily range): BP systolic 123–183; BP diastolic 74–103; PULSE 74–102; RESP 16–18; TEMP 98.7
[2016-11-21 00:03] LABS: BASOPHIL # 0.1 10^3/ul (0.0-0.1); BASOPHILS % 0.5 % (0.0-2.0); EOSINOPHILS # 0.5 10^3/ul (0.0-0.5); EOSINOPHILS % 3.6 % (0.0-7.0); HEMATOCRIT 36.2 % (42.0-52.0); HEMOGLOBIN 11.3 g/dl (14.0-18.0); LYMPHOCYTES # 2.7 10^3/ul (0.8-2.9); LYMPHOCYTES % 18.5 % (15.0-51.0); MEAN CORPUSCULAR HEMOGLOBIN 29.1 pg (29.0-33.0); MEAN CORPUSCULAR HGB CONC 31.2 g/dl (32.0-37.0); MEAN CORPUSCULAR VOLUME 93.3 fl (82.0-101.0); MEAN PLATELET VOLUME 9.8 fl (7.4-10.4); MONOCYTE # 1.3 10^3/ul (0.3-0.9); MONOCYTES % 8.7 % (0.0-11.0); NEUTROPHIL # 9.9 10^3/ul (1.6-7.5); NEUTROPHILS % 67.5 % (39.0-77.0); PLATELET COUNT 329 10^3/UL (140-415); RED BLOOD COUNT 3.88 10^6/ul (4.70-6.10); RED CELL DISTRIBUTION WIDTH 15.3 % (11.5-14.5); WHITE BLOOD COUNT 14.7 10^3/ul (4.8-10.8)
[2016-11-21 00:25] LABS: ALBUMIN 3.4 g/dl (3.3-4.9); ALBUMIN/GLOBULIN RATIO 1.03; BILIRUBIN,INDIRECT 0.1 mg/dl (0-1.1); BILIRUBIN,TOTAL 0.1 mg/dl (0.2-1.3); CREATININE 1.76 mg/dl (0.61-1.24); POTASSIUM 4.3 mmol/L (3.5-5.1); TOTAL PROTEIN 6.7 g/dl (6.1-8.1)
[2016-11-21 00:36] LABS: TROPONIN-I 0.027 ng/ml (0.00-0.12)
[2016-11-21] MEDS ORDERED: hydrALAzine 20 MG INJ IV ONE (01:00)
--- NOTE | 2016-11-21 02:31 | ERA ---
ER Documentation Chief Complaint Date/Time DATE: 11/21/16 TIME: 02:29 Chief Complaint sent by PMD d/t HTN and abnormal EKG; pt no c/o( verbalizes "im ok") HPI This is a 61-year-old male sent by his primary care physician secondary to hypertension and abnormal EKG. Patient verbalizes no complaints stating he is "okay". Noted to have severely elevated blood pressure. Upon further questioning, patient said he said some mild shortness of breath over the past few days. No nausea no vomiting no chills. Again the patient has no chest pain. No other current complaints. ROS All systems reviewed and are negative except as per history of present illness. Medications Home Meds Active Scripts Prednisone* (Prednisone*) 20 Mg Tab, 40 MG PO DAILY, #3 TAB Prov:TIGIST COOPER DO 11/18/16 Albuterol Sulfate* (Ventolin HFA*) 18 Gm Hfa.aer.ad, 2 PUFF INHALATION Q4H, #1 INHALER Prov:TIGIST COOPER DO 11/18/16 Albuterol Sulfate* (Proair HFA*) 8.5 Gm Hfa.aer.ad, 2 PUFF INH Q4, #1 INHALER Prov:CHELA CAMPO DO 11/09/16 Albuterol Sulfate (Proair Respiclick) 90 Mcg Aer.pow.ba, 1 PUFF INHALATION Q4 Y for SHORTNESS OF BREATH, #1 BOTTLE Prov:DANGELO PIPER MD 11/08/16 Acetaminophen* (Acetaminophen*) 325 Mg Tablet, 325 MG PO Q4H Y for PAIN AND OR ELEVATED TEMP for 10 Days, #30 TAB Prov:DANGELO PIPER MD 11/08/16 Prednisone* (Prednisone*) 20 Mg Tab, 40 MG PO DAILY for 3 Days, TAB Prov:DANGELO PIPER MD 11/08/16 Salmeterol Xinaf/Fluticasone* (Advair*) 250-50 Diskus Inhaler, 1 INH INH Q12 for 30 Days, #1 Prov:DANGELO PIPER MD 11/08/16 Metoprolol Tartrate* (Lopressor*) 50 Mg Tab, 75 MG PO BID for 14 Days, #28 TAB Prov:DANGELO PIPER MD 11/08/16 Azithromycin* (Azithromycin*) 250 Mg Tablet, 250 MG PO DAILY for 3 Days, #3 TAB Prov:DANGELO PIPER MD 11/08/16 Allergies Allergies: Coded Allergies: aspirin (Unverified Allergy, Severe, NAUSEA ; VOMITTING, 11/18/16) PMhx/Soc History of Surgery: Yes (umbilical hernia sx X 2) Anesthesia Reaction: No Hx Neurological Disorder: No Hx Respiratory Disorders: Yes (asthma, ) Hx Cardiac Disorders: Yes (HTN) Hx Psychiatric Problems: No Hx Miscellaneous Medical Probl: Yes (pls see EMR) Hx Alcohol Use: No Hx Substance Use: Yes Hx Tobacco Use: Yes Smoking Status: Never smoker Physical Exam Vitals Vital Signs Date Time Temp Pulse Resp B/P Pulse Ox O2 Delivery O2 Flow Rate FiO2 11/21/16 02:13 100 24 164/121 98 Room Air 11/20/16 23:13 201/104 11/20/16 19:31 98.3 97 20 182/97 97 Physical Exam Const: [] Head: Atraumatic Eyes: Normal Conjunctiva ENT: Normal External Ears, Nose and Mouth. Neck: Full range of motion..~ No meningismus. Resp: Clear to auscultation bilaterally Cardio: Regular rate and rhythm, no murmurs Abd: Soft, non tender, non distended. Normal bowel sounds Skin: No petechiae or rashes Back: No midline or flank tenderness Ext: No cyanosis, or edema Neur: Awake and alert Psych: Normal Mood and Affect Result Diagram: 11/20/16 2346 11/20/16 2346 Results 24 hrs Laboratory Tests Test 11/20/16 23:46 White Blood Count 14.710^3/ul Red Blood Count 3.8810^6/ul Hemoglobin 11.3g/dl Hematocrit 36.2% Mean Corpuscular Volume 93.3fl Mean Corpuscular Hemoglobin 29.1pg Mean Corpuscular Hemoglobin Concent 31.2g/dl Red Cell Distribution Width 15.3% Platelet Count 89998^3/UL Mean Platelet Volume 9.8fl Neutrophils % 67.5% Lymphocytes % 18.5% Monocytes % 8.7% Eosinophils % 3.6% Basophils % 0.5% Nucleated Red Blood Cells % 0.0/100WBC Neutrophils # 9.910^3/ul Lymphocytes # 2.710^3/ul Monocytes # 1.310^3/ul Eosinophils # 0.510^3/ul Basophils # 0.110^3/ul Nucleated Red Blood Cells # 0.010^3/ul Sodium Level 137mmol/L Potassium Level 4.3mmol/L Chloride Level 102mmol/L Carbon Dioxide Level 30mmol/L Anion Gap 9 Blood Urea Nitrogen 31mg/dl Creatinine 1.76mg/dl Glucose Level 101mg/dl Calcium Level 9.0mg/dl Total Bilirubin 0.1mg/dl Direct Bilirubin 0.00mg/dl Indirect Bilirubin 0.1mg/dl Aspartate Amino Transf (AST/SGOT) 36IU/L Alanine Aminotransferase (ALT/SGPT) 48IU/L Alkaline Phosphatase 188IU/L Troponin I 0.027ng/ml B-Type Natriuretic Peptide 2290PG/ML Total Protein 6.7g/dl Albumin 3.4g/dl Globulin 3.30g/dl Albumin/Globulin Ratio 1.03 Current Medications Medications (Trade) Dose Ordered Sig/Rica Route PRN Reason Start Time Stop Time Status Last Admin Dose Admin Hydralazine HCl (Apresoline) 20 mg ONCE ONCE IV 11/21/16 01:00 11/21/16 01:01 DC 11/21/16 01:45 Procedures/MDM EKG: Rate/Rhythm: [Normal Sinus Rhythm] QRS, ST, T-waves: [No changes consistent w/ acute ischemia] Impression: [No evidence of ischemia or arrhythmia] Chest X-ray 1V Interpreted by me: Soft Tissue: No acute abnormalities Bones: No acute abnormalities Mediastinum/Cardiac Silhouette/Lungs: [No acute abnormalities] Patient's symptoms are concerning for cardiac cause will require inpatient workup and continuous monitoring. Further w/u for ischemia, arrhythmia, PE or dissection will be deferred to the inpatient team. Accepting Care Team: Current data and ongoing care discussed. Time: 230 Primary Provider: Javi Consulting: [XOXOXO] Outstanding Data: none Critical Care: Time: 45 minutes Treatments/Evaluations: Close monitoring and treatment of unstable vital signs, cardiorespiratory, and neurologic status, while maintaining tight balance of fluid, respiratory, and cardiac interventions. Departure Diagnosis: Primary Impression: Hypertensive crisis Condition: Serious CARLOS DIXONLeidy Nov 21, 2016 02:31
[2016-11-21] MEDS ORDERED: morphine 2 MG INJ IV ONE (03:30)
[2016-11-21] MEDS ORDERED: METOPROLOL 5 MG INJ IV ONE (03:30)
[2016-11-21] MEDS ORDERED: LABETALOL HCL 20MG INJ IV ONE (05:30)
[2016-11-21 06:06] LABS: TROPONIN-I 0.029 ng/ml (0.00-0.12)
[2016-11-21] MEDS ORDERED: ACETAMINOPHEN 325 MG TAB PO PRN (06:30)
[2016-11-21] MEDS ORDERED: HYDROCODONE/APAP (5/325) TAB PO PRN (06:30)
[2016-11-21] MEDS ORDERED: ONDANSETRON 4 MG INJ IV PRN (06:30)
[2016-11-21] MEDS ORDERED: NACL 0.9% 3 ML SYG IV SCH (06:30)
[2016-11-21 06:36] LABS: CK-MB 1.79 ng/ml (0.0-2.4)
--- NOTE | 2016-11-21 06:47 | RADRPT ---
PROCEDURE: XR Chest. CLINICAL INDICATION: Shortness of breath TECHNIQUE: Single frontal view of the chest was obtained COMPARISON: None FINDINGS: The heart and mediastinum are within normal limits. There is no focal infiltrate. There is a small 6 mm nodular opacity overlying the right lower lobe, which may represent a nipple shadow. There is no pleural effusion or pneumothorax. RPTAT: AA IMPRESSION: Small 6 mm nodular opacity in the right lower lobe, may represent a nipple shadow. A repeat study wi th nipple markers recommended. No focal consolidation. .Indra Presley MD, MD Date Time Electronically viewed and signed by .Indra Presley MD, on 11/21/2016 06:37 .S/
[2016-11-21] MEDS ORDERED: VANCOMYCIN IV PER PHARMACY XX SCH (07:00)
--- NOTE | 2016-11-21 07:07 | HP ---
Date/Time of Note Date/Time of Note DATE: 11/21/16 TIME: 06:47 Assessment/Plan VTE Prophylaxis VTE Prophylaxis Intervention: SCD's Lines/Catheters IV Catheter Type (from [facility]): Saline Lock Assessment/Plan Chief Complaint/Hosp Course This is a 61-year-old male being admitted to the telemetry floor for: #1 shortness of breath: CHF versus asthma. At the current time patient's BNP is elevated at approximately 2000. We will treat the patient with Lasix IV twice daily to help with current fluid overload. Echocardiogram in September 2016 did show an ejection fraction of 65%. Trend cardiac enzymes. Will obtain cardiology consult. As needed duo nebs for asthma component. #2 hypertensive urgency: Patient had an initial blood pressure in the systolic 200s. Patient denies any headaches or any neurological deficits. The current time will slowly decrease the patient's blood pressure over the first 24 hours. He did receive hydralazine and labetalol in the ED. #3 Acute on chronic renal failure: Patient at the current time does appear to be mildly fluid overload. Will keep patient on Lasix. Will continue to monitor renal function. Will avoid nephrotoxic agents. Will consult nephrology. #4 Right arm infection: There appears to be a large round 4 x 4 centimeter mass /abscess/wound. Patient denies any IV drug use. At the current time as patient does have an old white blood cell count we will treat the patient with vancomycin IV. Will obtain ultrasound of the mass. May need surgical at which point we will consult surgery. #5 left forearm infection: Cellulitis versus abscess, again we will treat with IV vancomycin. Will obtain ultrasound of the area as well. #6 DVT and GI prophylaxis: SCDs, acid pio Further treatment strategy will be implemented as per the clinical course Problems: HPI/ROS Admit Date/Time Admit Date/Time Hx of Present Illness Chief complaint: High blood pressure and abnormal EKG This is a 61-year-old male comes into the ED stating that his primary care doctor sent him in because of high blood pressure in abnormal EKG. Patient states that he has been feeling decent over the last couple days though he does report some mild shortness of breath. He reports mild lower extremity swelling. He also has right upper extremity wound that is wrapped in gauze he states that he was treated for it sometime ago but has not followed up. He denies any chest pain or any fevers. Patient is homeless. Allergies: Aspirin Medications: None ROS Const: As per HPI Eyes : No pain discharge or redness or change in visual acuity ENT: No pain, sore throat, congestion, congestion, dysphagia or discharge Respiratory: As per HPI Cardiovascular: As per HPI GI : no change in appetite, abdominal pain, nausea, vomiting, diarrhea, constipation, or change in the color his stool Genitourinary: No dysuria, hematuria, flank pain , discharge or CVA tenderness Musculoskeletal: No joint pain, back pain, neck pain, restricted range of motion in neck or joints Skin: As per HPI Neuro: No headache, dizziness, syncope, seizure, focal weakness Endocrine: No polyuria, polydipsia, temperature intolerance Psych: No hallucination, depression, anxiety or suicidal ideation PMH/Family/Social Past Medical History asthma, hypertension, irritable bowel syndrome, renal insufficiency Past Surgical History Umbilical hernia repair on the right Past Surgical Hx: other Family History Significant Family History: no pertinent family hx Social History Alcohol Use: none Smoking Status: Current every day smoker (Half pack per day 30 years) Drug Use: marijuana Exam/Review of Systems Vital Signs Vitals Vital Signs Date Time Temp Pulse Resp B/P Pulse Ox O2 Delivery O2 Flow Rate FiO2 11/21/16 05:41 87 22 159/91 98 Nasal Cannula 2.0 11/21/16 04:10 98.9 Exam Exam General: This is a pleasant yet disheveled appearing male lying in bed in no acute distress. HEENT: Atraumatic, normocephalic. The pupils are equal, round and reactive. Extraocular motor are intact Neck: Supple with full range of motion. No rigidity or meningismus Chest: Nontender Lungs: Clear to auscultation bilaterally no crackles rales or wheezing Heart: Normal S1-S2, Regular rhythm and rate. No murmur, S3, or S4 Abdomen: Soft , nontender, nondistended , bowel sounds are present. No guarding no rebound tenderness , No masses or organomegaly. No costovertebral temporal angle mass Extremities: Trace edema of the bilateral lower extremities Neurologic: Normal mental status, speech normal, cranial nerves II through XII are intact, motor and sensory are intact, no focal weakness Skin: Patient has approximately 4 x 4 centimeter open mass/abscess/wound of the right upper extremity. There does not appear to be any active drainage though there does appear to be dried blood. Left upper extremity approximately 2 x 2 centimeter area of redness and induration with no active drainage. Additional Comments EKG: Shows normal sinus rhythm, with no ST or T-wave abnormalities, good R-wave progression, Labs Result Diagram: 11/20/16 2346 11/20/16 2346 Medications Medications Current Medications Ondansetron HCl (Zofran Inj) 4 mg Q6H PRN IV NAUSEA AND/OR VOMITING; Start 11/21/16 at 06:30 Acetaminophen (Tylenol Tab) 650 mg Q6H PRN PO PAIN LEVEL 1-3 OR FEVER; Start 11/21/16 at 06:30 Acetaminophen/ Hydrocodone Bitart ([place] (5/325)) 1 tab Q6H PRN PO PAIN LEVEL 4 -6; Start 11/21/16 at 06:30 Famotidine (Pepcid) 20 mg Q12 PO ; Start 11/21/16 at 09:00 HELIO DIAZ Nov 21, 2016 06:58
[2016-11-21] MEDS ORDERED: VANCOMYCIN 1.5 GM in SOD CHLORIDE 0.9% 250 ML IVPB SCH (07:30)
[2016-11-21] MEDS ORDERED: FUROSEMIDE 40 MG INJ IV SCH (09:00)
[2016-11-21] MEDS ORDERED: FAMOTIDINE 20 MG TAB PO SCH (09:00)
[2016-11-21] MEDS ORDERED: LEVALBUTEROL (NEB) 0.63 MG/3 ML AMP HHN PRN (10:00)
[2016-11-21] MEDS ORDERED: AMLODIPINE 5 MG TAB PO ONE (11:00)
[2016-11-21] MEDS ORDERED: LISINOPRIL 5 MG TAB PO ONE (11:00)
[2016-11-21 11:16] LABS: HEMOGLOBIN 12.6 g/dl (14.0-18.0)
--- NOTE | 2016-11-21 11:28 | RADRPT ---
PROCEDURE: Ultrasound of the soft tissues of the right forearm and left wrist. CLINICAL INDICATION: Palpable lesion in the right forearm and left wrist. Recent trauma. TECHNIQUE: High-resolution sonography of the right forearm and left wrist at the site of the palpa ble lesion was performed in the axial and sagittal planes. COMPARISON: None FINDINGS: At the site of the palpable lesion in the right forearm, there is a subcutaneous hypoechoic mass lacie suring 4.3 x 0.7 x 3.6 cm. At the site of the palpable lesion in the left wrist, there is a subcutaneous hyperechoic mass measu ring 0.6 x 2.1 x 3.4 cm. There is no other abnormality. IMPRESSION: 1. Subcutaneous masses in the right forearm and left wrist as described above. These may be related to trauma. Neoplasm cannot be excluded. Clinical correlation is advised. 2. Any further management regarding the palpable lesions should be based on clinical grounds. RPTAT: QQ .Han Juares MD, MD Date Time Electronically viewed and signed by .Han Juares MD, on 11/21/2016 11:28 .R/
[2016-11-21 11:40] LABS: CHOL/HDL RATIO 3.1 RATIO
[2016-11-21 11:48] LABS: TROPONIN-I 0.018 ng/ml (0.00-0.12)
[2016-11-21 11:51] LABS: CK-MB 1.77 ng/ml (0.0-2.4)
--- NOTE | 2016-11-21 12:15 | RADRPT ---
Echocardiogram Report Patient Name: VY JASON Gender: Male Date: 1955 Study Date: 21-Nov-2016 Manager Diesel: Arvin [facility] Location: 3303-A Ref. Physician: HELIO DIAZ Quality: Adequate Procedures: Transthoracic echocardiogram with complete 2D, M-Mode, and doppler examination. Indications: Elevated BNP. 2D/M Mode Doppler Measurement Value Normal Ranges Measurement Value Normal Ranges LVIDd 2D 4.0 3.5 - 5.6 cm AV Peak Rbo 1.3 m/sec LVIDs 2D 2.6 2.1 - 4.1 cm AV Peak PG 7.0 mmHg FS 2D 35.2 % LVOT Peak Rob 1.0 m/sec LVPWd 2D 1.5 0.6 - 1.1 cm LVOT Peak PG 4.0 mmHg IVSd 2D 1.5 0.6 - 1.1 cm MV E Peak Rob 1.1 m/sec IVS/LVPW 2D 1.0 MV Decel Time 120 msec AoR Diam 2D 2.9 2.0 - 3.7 cm LA/Ao 2D 1 0 - 1 EDV 2D 65.5 cm3 ESV 2D 17.8 cm3 LA Dimen 2D 3.6 2.3 - 4.0 cm Findings Left Ventricle: Normal left ventricular systolic function. Normal left ventricular cavity size. Moderate concentric left ventricular hypertrophy. Ejection fraction is visually estimated at 65 %. Abnormal Diastolic Function. Right Ventricle: Normal right ventricular size. Normal right ventricular systolic function. Left Atrium: The left atrium is normal in size. Right Atrium: The right atrium is normal in size. Mitral Valve: Mild mitral leaflet calcification. Mild mitral annular calcification. Trace mitral regurgitation. Aortic Valve: Aortic cusps appear mildly calcified. Tricuspid Valve: Normal appearance of the tricuspid valve. Unable to obtain RVSP due to minimal presence of tricuspid regurgitation. There is trace tricuspid regurgitation. Pulmonic Valve: Pulmonic valve not well visualized. There is trace pulmonic regurgitation. Pericardium: Normal pericardium with no significant pericardial effusion. Aorta: Normal aortic root. IVC: Normal size and normal respiratory collapse consistent with normal right atrial pressure. Conclusions 1.Normal left ventricular systolic function. Normal left ventricular cavity size. Moderate concentric left ventricular hypertrophy. Ejection fraction is visually estimated at 65 %. Abnormal Diastolic Function. 2.Aortic cusps appear mildly calcified. 3.Normal appearance of the tricuspid valve. Unable to obtain RVSP due to minimal presence of tricuspid regurgitation. There is trace tricuspid regurgitation. 4.Pulmonic valve not well visualized. There is trace pulmonic regurgitation. 5.Normal size and normal respiratory collapse consistent with normal right atrial pressure. Electronically Signed By: Herbie Huddleston 21-Nov-2016 12:14:39 -0700 Patient Name: VY JASON Study Date: 21-Nov-2016 [id number]
--- NOTE | 2016-11-21 12:41 | CONS ---
Date/Time of Note Date/Time of Note DATE: 11/21/16 TIME: 12:34 Assessment/Plan Assessment/Plan Chief Complaint/Hosp Course 1. ASTHMA/ COPD exacerbation 2. HTN 3. CKD 4. Elevated BNP but not CHF. 5. Multiple skin lesions r/o abscess, etc dc IV lasix need better BP control will add clonidine and norvasc dc JELLY due to renal failure. resp care and skin lesion managment as per IM THANK YOU RHIANNA HALL MD [facility] Problems: Consultation Date/Type/Reason Admit Date/Time Date of Consultation: Nov 21, 2016 Reason for Consultation R/O CHF. Referring Provider: HELIO DIAZ Hx of Present Illness CC: HTN/ abnormal ECG HPI: Dear Dr. Diaz, Thank you for this referral This is a 61-year-old gentleman with history of hypertension chronic kidney disease noncompliance with takes no medication I was seen in clinic yesterday. Patient denies any chest pain or pressure to me. He stated he had no complaint and was just seen for a routine follow-up with his primary care physician. Patient was seen by his primary care physician to emergency room to be admitted because abnormal EKG and elevated blood pressure 220. Patient was recently discharged from the hospital with asthma COPD. He has not been taking any medication once he left the hospital. He said he has short chronic shortness of breath and wheezing. His BNP was elevated for which he was kindly asked to evaluate and treat. Patient was initially started on Lasix. He denies any PND orthopnea or chest pain to me. He also complains of bilateral arm lesion. ALLEGY ASA SOCIAL: + SMOKER. denies etoh or drugs. pt states he is homeless. family hx: no early CAD PMH: HTN COPD/asthma CKD MEDS; patient does not take any medication at home. Review of system: As above only. Past Surgical History Past Surgical Hx: other Social History Alcohol Use: none Smoking Status: Current every day smoker Drug Use: marijuana Exam/Review of Systems Vital Signs Vitals Vital Signs Date Time Temp Pulse Resp B/P Pulse Ox O2 Delivery O2 Flow Rate FiO2 11/21/16 12:12 97.8 78 18 180/103 95 Room Air 11/21/16 07:40 2.0 Exam General: no acute distress HEENT: NC/AT. pupils are equal. round. NECK: NO JVD. no stridor. CV: RRR. systolic murmur; no gallop or rubs. PULM: + wheezing NO rhonchi. GI: SOFT, NT, ND, no rebound or guarding Extremity: trace B/L LE edema. no clubbing. neuro: awake and alert, OX3. Psych: calm and pleasant rectal: deferred : normal male Derm: multiple skin lesions on arms. with induration on left arm ECG NSR normal ECHO REVIEWED. 1. Normal left ventricular systolic function. Normal left ventricular cavity size. Moderate concentric left ventricular hypertrophy. Ejection fraction is visually estimated at 65 %. Abnormal Diastolic Function. 2. Aortic cusps appear mildly calcified. 3. Normal appearance of the tricuspid valve. Unable to obtain RVSP due to minimal presence of tricuspid regurgitation. There is trace tricuspid regurgitation. 4. Pulmonic valve not well visualized. There is trace pulmonic regurgitation. 5. Normal size and normal respiratory collapse consistent with normal right atrial pressure. Results Result Diagram: 11/21/16 1044 11/20/16 2346 Results 24 hrs Laboratory Tests Test 11/20/16 23:46 11/21/16 05:30 11/21/16 10:44 White Blood Count 14.7 #H Red Blood Count 3.88 L Hemoglobin 11.3 L 12.6 L Hematocrit 36.2 L 40.0 L Mean Corpuscular Volume 93.3 Mean Corpuscular Hemoglobin 29.1 Mean Corpuscular Hemoglobin Concent 31.2 L Red Cell Distribution Width 15.3 H Platelet Count 329 # Mean Platelet Volume 9.8 Neutrophils % 67.5 Lymphocytes % 18.5 Monocytes % 8.7 Eosinophils % 3.6 Basophils % 0.5 Nucleated Red Blood Cells % 0.0 Neutrophils # 9.9 H Lymphocytes # 2.7 Monocytes # 1.3 H Eosinophils # 0.5 Basophils # 0.1 Nucleated Red Blood Cells # 0.0 Sodium Level 137 Potassium Level 4.3 Chloride Level 102 Carbon Dioxide Level 30 Anion Gap 9 Blood Urea Nitrogen 31 H Creatinine 1.76 H Glucose Level 101 Calcium Level 9.0 Total Bilirubin 0.1 L Direct Bilirubin 0.00 Indirect Bilirubin 0.1 Aspartate Amino Transf (AST/SGOT) 36 Alanine Aminotransferase (ALT/SGPT) 48 Alkaline Phosphatase 188 H Troponin I 0.027 0.029 0.018 B-Type Natriuretic Peptide 2290 H Total Protein 6.7 Albumin 3.4 Globulin 3.30 H Albumin/Globulin Ratio 1.03 Creatine Kinase 39 35 Creatine Kinase Index 4.6 5.1 Creatinine Kinase MB (Mass) 1.79 1.77 Hemoglobin A1c 5.3 Magnesium Level 2.1 Triglycerides Level 76 Cholesterol Level 176 LDL Cholesterol, Calculated 105 HDL Cholesterol 56 Cholesterol/HDL Ratio 3.1 Thyroid Stimulating Hormone (TSH) 1.720 Medications Medications Current Medications Ondansetron HCl (Zofran Inj) 4 mg Q6H PRN IV NAUSEA AND/OR VOMITING; Start 11/21/16 at 06:30 Acetaminophen (Tylenol Tab) 650 mg Q6H PRN PO PAIN LEVEL 1-3 OR FEVER; Start 11/21/16 at 06:30 Acetaminophen/ Hydrocodone Bitart ([place] (5/325)) 1 tab Q6H PRN PO PAIN LEVEL 4 -6 Last administered on 11/21/16t 11:08; Admin Dose 1 TAB; Start 11/21/16 at 06: 30 Lisinopril (Zestril) 5 mg DAILY GTB ; Start 11/22/16 at 09:00 Amlodipine Besylate (Norvasc) 5 mg DAILY PO ; Start 11/22/16 at 09:00 Influenza Virus Vaccine (Fluzone) 0.5 ml ONCE ONCE IM* ; Start 11/22/16 at 12:00 ; Stop 11/22/16 at 12:01 RHIANNA HALL MD Nov 21, 2016 12:41
--- NOTE | 2016-11-21 15:15 | RADRPT ---
PROCEDURE: XR Chest. CLINICAL INDICATION: Pulmonary nodule TECHNIQUE: PA and lateral chest x-ray with nipple markers. COMPARISON: 11/21/2016 at 12:04 a.m.. FINDINGS: The previously-described right lower lobe nodular density is no longer seen and was likely artifactu al. Normal markers are identified. The lungs are clear. No focal opacification is seen. The cardi omediastinal silhouette is unremarkable. There is no pneumothorax or pleural effusion. The osseous structures are unremarkable. IMPRESSION: No acute cardiopulmonary disease . No evidence of pulmonary nodule. RPTAT: JJ .Emile Macedo MD, Date Time Electronically viewed and signed by .Emile Macedo MD, on 11/21/2016 15:14 .A/
--- NOTE | 2016-11-21 17:53 | PN ---
Date/Time of Note Date/Time of Note DATE: 11/21/16 TIME: 17:51 Assessment/Plan VTE Prophylaxis VTE Prophylaxis Intervention: heparin Lines/Catheters IV Catheter Type (from Nrs): Peripheral IV Urinary Cath still in place: No Assessment/Plan Chief Complaint/Hosp Course 61 yo male w CKD II presenting with hypertensive emergency Hypertension: - Control BP with amlodipine, clonidine per cards CKD II: - Stable renal dysfuntion - [place] hypertensive nephrosclerosis Arm lesion: - Ulikely infection but empriic abx for now - Drainage/biopsy by IR Dispo to self care Problems: Subjective 24 Hr Interval Summary Free Text/Dictation Patient asymtomatic No more SOB BP normalized Exam/Review of Systems Vital Signs Vitals Vital Signs Date Time Temp Pulse Resp B/P Pulse Ox O2 Delivery O2 Flow Rate FiO2 11/21/16 16:36 97.7 81 16 135/74 96 Room Air 11/21/16 07:40 2.0 Exam Constitutional: alert, oriented, well developed Psych: nl mood/affect, no complaints Head: atraumatic, normocephalic Eyes: EOMI, PERRL, nl conjunctiva, nl lids, nl sclera ENMT: nl external ears & nose, nl lips & teeth, nl nasal mucosa & septum Neck: non-tender, supple Respiratory: clear to auscultation, normal air movement Cardiovascular: nl pulses, regular rate and rhythm Gastrointestinal: nl liver, spleen, non-tender, soft Musculoskeletal: nl extremities to inspection, nl gait and stance Extremities: normal pulses Neurological: MESSENGER FLOORPERSON II-XII intact, nl mental status, nl speech, nl strength Skin: nl turgor, No rash or lesions Lymph: nl lymph nodes Results Result Diagram: 11/21/16 1044 11/20/16 2346 Results 24 hrs Laboratory Tests Test 11/20/16 23:46 11/21/16 05:30 11/21/16 10:44 White Blood Count 14.7 #H Red Blood Count 3.88 L Hemoglobin 11.3 L 12.6 L Hematocrit 36.2 L 40.0 L Mean Corpuscular Volume 93.3 Mean Corpuscular Hemoglobin 29.1 Mean Corpuscular Hemoglobin Concent 31.2 L Red Cell Distribution Width 15.3 H Platelet Count 329 # Mean Platelet Volume 9.8 Neutrophils % 67.5 Lymphocytes % 18.5 Monocytes % 8.7 Eosinophils % 3.6 Basophils % 0.5 Nucleated Red Blood Cells % 0.0 Neutrophils # 9.9 H Lymphocytes # 2.7 Monocytes # 1.3 H Eosinophils # 0.5 Basophils # 0.1 Nucleated Red Blood Cells # 0.0 Sodium Level 137 Potassium Level 4.3 Chloride Level 102 Carbon Dioxide Level 30 Anion Gap 9 Blood Urea Nitrogen 31 H Creatinine 1.76 H Glucose Level 101 Calcium Level 9.0 Total Bilirubin 0.1 L Direct Bilirubin 0.00 Indirect Bilirubin 0.1 Aspartate Amino Transf (AST/SGOT) 36 Alanine Aminotransferase (ALT/SGPT) 48 Alkaline Phosphatase 188 H Troponin I 0.027 0.029 0.018 B-Type Natriuretic Peptide 2290 H Total Protein 6.7 Albumin 3.4 Globulin 3.30 H Albumin/Globulin Ratio 1.03 Creatine Kinase 39 35 Creatine Kinase Index 4.6 5.1 Creatinine Kinase MB (Mass) 1.79 1.77 Hemoglobin A1c 5.3 Magnesium Level 2.1 Triglycerides Level 76 Cholesterol Level 176 LDL Cholesterol, Calculated 105 HDL Cholesterol 56 Cholesterol/HDL Ratio 3.1 Thyroid Stimulating Hormone (TSH) 1.720 Medications Medications Current Medications Ondansetron HCl (Zofran Inj) 4 mg Q6H PRN IV NAUSEA AND/OR VOMITING; Start 11/21/16 at 06:30 Acetaminophen (Tylenol Tab) 650 mg Q6H PRN PO PAIN LEVEL 1-3 OR FEVER; Start 11/21/16 at 06:30 Acetaminophen/ Hydrocodone Bitart ([place] (5/325)) 1 tab Q6H PRN PO PAIN LEVEL 4 -6 Last administered on 11/21/16 11:08; Admin Dose 1 TAB; Start 11/21/16 at 06: 30 Amlodipine Besylate (Norvasc) 5 mg DAILY PO ; Start 11/22/16 at 09:00 Influenza Virus Vaccine (Fluzone) 0.5 ml ONCE ONCE IM* ; Start 11/22/16 at 12:00 ; Stop 11/22/16 at 12:01 Clonidine (Catapres) 0.2 mg Q6 PO Last administered on 11/21/16 14:33; Admin Dose 0.2 MG; Start 11/21/16 at 13:00 ALEXY JOSHI MD Nov 21, 2016 17:53
[2016-11-21] MEDS ORDERED: HYDROCODONE/APAP (10/325) TAB PO PRN (21:00)
--- NOTE | 2016-11-21 21:32 | CONS ---
DATE OF ADMISSION: 11/21/2016 DATE OF CONSULTATION: 11/21/2016 REASON FOR CONSULTATION: Chronic kidney disease. PHYSICIAN REQUESTING CONSULT: Dr. Black HISTORY OF PRESENT ILLNESS: This is a 61-year-old male with a past medical history of chronic kidney disease with a baseline creatinine around 1.7-1.8 mg per dL, history of CHF, history of hypertension, who presents to [facility] with elevated blood pressure. Patient was apparently at his primary care physicians office and was noted to be hypertensive. As a result, came to the emergency room. Upon arrival, patient was noted to have shortness of breath, lower extremity swelling. In the emergency room, the patient was given antihypertensive medication. Chest x-ray was obtained, which showed findings of nodular opacity. Patient was admitted to telemetry for further evaluation. In terms of patient's renal history, patient has chronic kidney disease with previous baseline creatinine ranging from 1.5-2.0 mg per dL. Patient denies any hemoptysis, hematemesis, hematochezia. PAST MEDICAL HISTORY: As stated above. History of hypertension, history of tobacco use, history of shortness of breath, history of chronic kidney disease. PAST SURGICAL HISTORY: Patient has umbilical hernia. ALLERGIES: ALLERGIC TO ASPIRIN. FAMILY HISTORY: Noncontributory. SOCIAL HISTORY: Does not drink, smoke, or do drugs. MEDICATION: Patient's medications have been reviewed. REVIEW OF SYSTEMS: Fourteen point review of systems conducted. Pertinent positives as in HPI, otherwise negative. PHYSICAL EXAMINATION: VITAL SIGNS: Blood pressure is 123/83, respirations 16, pulse 81, temperature 97.7. HEENT: Head is normocephalic. Pupils are reactive to light. NECK: Supple. HEART: Regular rate. LUNGS: Diminished breath sounds at the base. ABDOMEN: Soft, nontender to palpation. No rebound or guarding. EXTREMITIES: Negative for clubbing, cyanosis. No edema. DERMATOLOGIC: No rashes. MUSCULOSKELETAL: No joint effusion. NEUROLOGIC: Unchanged exam. LABORATORY: White count 14.7, hemoglobin 9.3, hematocrit 36.2, platelet count is 329,000. The patient's sodium 137, potassium 4.3, BUN 31, creatinine 1.76. IMPRESSION AND PLAN: This is a 61-year-old male presents with: 1. Chronic kidney disease with previous baseline creatinine range of 1.5-2.0 mg/dL. Etiology of chronic kidney disease likely secondary to hypertensive nephrosclerosis. Patient's previous renal ultrasound has been reviewed. Plan at this point, check urinalysis with microanalysis. Check urine electrolytes. Will continue patient's current medical management. Continue current blood pressure control. Would otherwise continue supportive care. Renally dose all medications. Avoid nephrotoxins. 2. Anemia. Monitor hemoglobin and hematocrit levels. 3. Mineral bone disorder. Monitor calcium and phosphorus levels. 4. Acute asthma and chronic obstructive pulmonary disease exacerbation. Continue medical management. 5. Multiple skin lesions, rule out abscess. Continue IV antibiotics. Thank you Dr. Caldwell for this interesting consult. It will be a pleasure to follow patient with you throughout the hospital course. Dictated By: Wellington Davenport DO /carmine/juan daniel /Document#: [id number]
[2016-11-22] VITALS (7 sets, daily range): BP systolic 116–151; BP diastolic 68–93; PULSE 61–124; RESP 16–20
[2016-11-22 07:13] LABS: BASOPHIL # 0.1 10^3/ul (0.0-0.1); BASOPHILS % 0.5 % (0.0-2.0); EOSINOPHILS # 0.6 10^3/ul (0.0-0.5); EOSINOPHILS % 4.9 % (0.0-7.0); HEMATOCRIT 35.8 % (42.0-52.0); HEMOGLOBIN 11.6 g/dl (14.0-18.0); LYMPHOCYTES # 2.1 10^3/ul (0.8-2.9); LYMPHOCYTES % 17.3 % (15.0-51.0); MEAN CORPUSCULAR HEMOGLOBIN 30.1 pg (29.0-33.0); MEAN CORPUSCULAR HGB CONC 32.4 g/dl (32.0-37.0); MEAN CORPUSCULAR VOLUME 92.7 fl (82.0-101.0); MEAN PLATELET VOLUME 9.9 fl (7.4-10.4); MONOCYTE # 1.1 10^3/ul (0.3-0.9); MONOCYTES % 8.8 % (0.0-11.0); NEUTROPHIL # 8.4 10^3/ul (1.6-7.5); NEUTROPHILS % 67.5 % (39.0-77.0); PLATELET COUNT 309 10^3/UL (140-415); RED BLOOD COUNT 3.86 10^6/ul (4.70-6.10); RED CELL DISTRIBUTION WIDTH 15.1 % (11.5-14.5); WHITE BLOOD COUNT 12.4 10^3/ul (4.8-10.8)
[2016-11-22 07:36] LABS: ALBUMIN 3.1 g/dl (3.3-4.9); ALBUMIN/GLOBULIN RATIO 1.06; BILIRUBIN,INDIRECT 0.3 mg/dl (0-1.1); BILIRUBIN,TOTAL 0.3 mg/dl (0.2-1.3); CALCIUM 8.3 mg/dl (8.4-10.2); CREATININE 1.68 mg/dl (0.61-1.24); POTASSIUM 4.1 mmol/L (3.5-5.1)
--- NOTE | 2016-11-22 08:37 | CONS ---
Date/Time of Note Date/Time of Note DATE: 11/22/16 TIME: 08:35 Consult Date/Type/Reason Admit Date/Time Nov 21, 2016 at 02:34 Initial Consult Date 11/21/16 Type of Consultation: CARD Ordering Provider: HELIO DIAZ Subjective D/W STAFF pt with no chest pain or pressure. no palpitations no SOB, PND orthonpnea O: General: no acute distress HEENT: NC/AT. pupils are equal. round. NECK: NO JVD. no stridor. CV: RRR. systolic murmur; no gallop or rubs. PULM: + wheezing NO rhonchi. GI: SOFT, NT, ND, no rebound or guarding Extremity: trace B/L LE edema. no clubbing. neuro: awake and alert, OX3. Psych: calm and pleasant rectal: deferred : normal male Derm: multiple skin lesions on arms. with induration on left arm ECG NSR normal ECHO REVIEWED. 1. Normal left ventricular systolic function. Normal left ventricular cavity size. Moderate concentric left ventricular hypertrophy. Ejection fraction is visually estimated at 65 %. Abnormal Diastolic Function. 2. Aortic cusps appear mildly calcified. 3. Normal appearance of the tricuspid valve. Unable to obtain RVSP due to minimal presence of tricuspid regurgitation. There is trace tricuspid regurgitation. 4. Pulmonic valve not well visualized. There is trace pulmonic regurgitation. 5. Normal size and normal respiratory collapse consistent with normal right atrial pressure. Objective Vital Signs Date Time Temp Pulse Resp B/P Pulse Ox O2 Delivery O2 Flow Rate FiO2 11/22/16 08:06 97.4 61 16 124/78 97 Room Air 11/21/16 07:40 2.0 Intake and Output 11/21/16 11/21/16 11/22/16 15:00 23:00 07:00 Intake Total 120 ml Balance 120 ml Results/Medications Result Diagram: 11/22/1618 11/22/1618 Results 24 hrs Laboratory Tests Test 11/21/16 10:44 11/22/16 06:18 Hemoglobin 12.6 L 11.6 L Hematocrit 40.0 L 35.8 L Hemoglobin A1c 5.3 Magnesium Level 2.1 Creatine Kinase 35 Creatine Kinase Index 5.1 Creatinine Kinase MB (Mass) 1.77 Troponin I 0.018 Triglycerides Level 76 Cholesterol Level 176 LDL Cholesterol, Calculated 105 HDL Cholesterol 56 Cholesterol/HDL Ratio 3.1 Thyroid Stimulating Hormone (TSH) 1.720 White Blood Count 12.4 H Red Blood Count 3.86 L Mean Corpuscular Volume 92.7 Mean Corpuscular Hemoglobin 30.1 Mean Corpuscular Hemoglobin Concent 32.4 Red Cell Distribution Width 15.1 H Platelet Count 309 Mean Platelet Volume 9.9 Neutrophils % 67.5 Lymphocytes % 17.3 Monocytes % 8.8 Eosinophils % 4.9 Basophils % 0.5 Nucleated Red Blood Cells % 0.0 Neutrophils # 8.4 H Lymphocytes # 2.1 Monocytes # 1.1 H Eosinophils # 0.6 H Basophils # 0.1 Nucleated Red Blood Cells # 0.0 Sodium Level 138 Potassium Level 4.1 Chloride Level 103 Carbon Dioxide Level 30 Anion Gap 9 Blood Urea Nitrogen 30 H Creatinine 1.68 H Glucose Level 94 Calcium Level 8.3 L Total Bilirubin 0.3 Direct Bilirubin 0.00 Indirect Bilirubin 0.3 Aspartate Amino Transf (AST/SGOT) 31 Alanine Aminotransferase (ALT/SGPT) 42 Alkaline Phosphatase 123 H Total Protein 6.0 L Albumin 3.1 L Globulin 2.90 Albumin/Globulin Ratio 1.06 Medications Current Medications Ondansetron HCl (Zofran Inj) 4 mg Q6H PRN IV NAUSEA AND/OR VOMITING; Start 11/21/16 at 06:30 Acetaminophen (Tylenol Tab) 650 mg Q6H PRN PO PAIN LEVEL 1-3 OR FEVER; Start 11/21/16 at 06:30 Acetaminophen/ Hydrocodone Bitart ([place] (5/325)) 1 tab Q6H PRN PO PAIN LEVEL 4 -6 Last administered on 11/21/16 11:08; Admin Dose 1 TAB; Start 11/21/16 at 06: 30 Amlodipine Besylate (Norvasc) 5 mg DAILY PO ; Start 11/22/16 at 09:00 Influenza Virus Vaccine (Fluzone) 0.5 ml ONCE ONCE IM* ; Start 11/22/16 at 12:00 ; Stop 11/22/16 at 12:01 Clonidine (Catapres) 0.2 mg Q6 PO Last administered on 11/22/16 05:15; Admin Dose 0.2 MG; Start 11/21/16 at 13:00 Acetaminophen/ Hydrocodone Bitart ([place] (10/325)) 1 tab Q4H PRN PO PAIN; Start 11/21/16 at 21:00 Assessment/Plan Chief Complaint/Hosp Course 1. ASTHMA/ COPD exacerbation 2. HTN 3. CKD 4. Elevated BNP but not CHF. 5. Multiple skin lesions r/o abscess, etc off of IV lasix. f/u renal rec. cont BP control will add clonidine and norvasc resp care and skin lesion managment as per IM THANK YOU RHIANNA HALL MD [facility] Problems: RHIANNA HALL MD Nov 22, 2016 08:37
[2016-11-22] MEDS ORDERED: LISINOPRIL 5 MG TAB GTB SCH (09:00)
[2016-11-22] MEDS ORDERED: AMLODIPINE 5 MG TAB PO SCH (09:00)
[2016-11-22] MEDS ORDERED: LIDOCAINE 1% (MDV) 20 ML INJ ONE (09:59)
[2016-11-22] MEDS ORDERED: VANCOMYCIN 750 MG in SOD CHLORIDE 0.9% 150 ML IVPB SCH (10:00)
[2016-11-22] MEDS ORDERED: INFLUENZA VIRUS VACCINE 0.5 ML SYG IM* ONE (12:00)
--- NOTE | 2016-11-22 12:06 | RADRPT ---
PROCEDURE: Ultrasound guided aspiration of right forearm fluid collection. CLINICAL INDICATION: Right forearm fluid collection. History of trauma to the region. TECHNIQUE: Prior to the procedure, informed consent was obtained. Risks including bleeding and in fection were explained to the patient. The patient understood was willing to proceed. A procedural pause was performed. The patient's name, date of , and procedure to be performed were verifie d. Using local anesthetic, sterile technique and ultrasound guidance, a 21-gauge needle was advanced in to the fluid collection in the right forearm. Only minimal bloody fluid was obtained. Therefore, a 1 6-gauge needle was advanced into the fluid collection in the right forearm. Approximately 5 ml of bl oody fluid was aspirated. The fluid was sent for laboratory analysis. The patient tolerated the pro cedure well. COMPARISON: Ultrasound dated 11/21/2016. FINDINGS: Images demonstrate the fluid collection in the right forearm as seen previously. Ultrasound guidance was used for needle placement. IMPRESSION: 1. Satisfactory ultrasound-guided aspiration a right arm fluid collection. RPTAT: QQ .Han Juares MD, MD Date Time Electronically viewed and signed by .Han Juares MD, on 11/22/2016 12:06 .R/
--- NOTE | 2016-11-22 12:17 | PN ---
DATE: 11/22/2016 SUBJECTIVE: The patient is stable. No events overnight. No fevers, chills, nausea, vomiting, no s hortness of breath. OBJECTIVE: VITAL SIGNS: Blood pressure is 124/78, temperature 97.4, pulse 61, respirations 16. HEENT: Head is normocephalic. NECK: Supple. HEART: Regular rate. LUNGS: Show diminished breath sounds at base. ABDOMEN: Soft, nontender to palpation. No rebound or guarding. EXTREMITIES: Negative for clubbing, cyanosis, no edema. DERMATOLOGIC: No rashes. MUSCULOSKELETAL: No joint effusions. NEUROLOGIC: No change in exam. MEDICATIONS: Reviewed. LABORATORY DATA: Shows a sodium 138, potassium 4.1, BUN 30, creatinine 1.68. White count 12.4, hem oglobin 9.6, hematocrit 35.8, platelet count is 309. ASSESSMENT AND PLAN: 1. Chronic kidney disease with previous baseline creatinine of 1.5 to 2.0 mg/dL. The patient's osvaldo al function is currently at baseline. Underlying cause is likely due to hypertensive nephrosclerosi s. The patient's repeat urinalysis pending. At this point, continue current treatment plan, suppor tive care, renally dose all meds. 2. Anemia. Monitor changed status. 3. Mineral bone disorder. Monitor calcium and phosphorus levels. 4. Acute respiratory failure secondary to asthma and chronic obstructive pulmonary disease exacerba tion. Continue medical management. 5. Multiple skin lesions. The patient is pending biopsy. Continue antibiotic therapy. Dictated By: RENALDO FREEMAN/AVERY Conf#: [id number] DID#: [id number]
[2016-11-22] MEDS ORDERED: CLON0.2T12 PO (13:36)
[2016-11-22] MEDS ORDERED: AMLO-145 PO (13:36)
--- NOTE | 2016-11-22 13:37 | PDOCDIS ---
Discharge Instructions DIAGNOSIS Discharge Diagnosis Hypertensive emergency CONDITION Patient Condition: Good HOME CARE INSTRUCTIONS: Diet Instructions: Reduced Sodium FOLLOW UP/APPOINTMENTS Follow-up Plan Follow up with your primary care doctor for managmeent of your high blood pressure and kidney disease ALEXY JOSHI MD Nov 22, 2016 13:37
--- NOTE | 2016-11-22 15:21 | DS ---
Date/Time of Note Date/Time of Note DATE: 11/22/16 TIME: 15:19 Discharge Summary Admission/Discharge Info Admit Date/Time Nov 21, 2016 at 02:34 Discharge Date/Time Discharge Diagnosis Hypertensive emergency Patient Condition: Good Hx of Present Illness Chief complaint: High blood pressure and abnormal EKG This is a 61-year-old male comes into the ED stating that his primary care doctor sent him in because of high blood pressure in abnormal EKG. Patient states that he has been feeling decent over the last couple days though he does report some mild shortness of breath. He reports mild lower extremity swelling. He also has right upper extremity wound that is wrapped in gauze he states that he was treated for it sometime ago but has not followed up. He denies any chest pain or any fevers. Patient is homeless. Allergies: Aspirin Medications: None Hospital Course Patient was found to be in hypertensive emergency. He was treated wtih amlodipine and clonidien as well as IV lasix and his symptoms rapidly improved. He had a bump on his forearm that was fluid filled on ultrasound,. It was drained and showed sanginous liquid. The patient was discharged with scripts for amlodipine adn clonidine. He will follow up with his primary care provider for further [facility] Meds Active Scripts Clonidine Hcl* (Catapres*) 0.2 Mg Tablet, 0.2 MG PO BID for 30 Days, #60 TAB Prov:ALEXY JOSHI MD 11/22/16 Amlodipine Besylate* (Amlodipine Besylate*) 5 Mg Tablet, 5 MG PO DAILY for 30 Days, #60 TAB Prov:ALEXY JOSHI MD 11/22/16 Discontinued Scripts Prednisone* (Prednisone*) 20 Mg Tab, 40 MG PO DAILY, #3 TAB Prov:TIGIST COOPER DO 11/18/16 Albuterol Sulfate* (Ventolin HFA*) 18 Gm Hfa.aer.ad, 2 PUFF INHALATION Q4H, #1 INHALER Prov:TIGIST COOPER DO 11/18/16 Albuterol Sulfate* (Proair HFA*) 8.5 Gm Hfa.aer.ad, 2 PUFF INH Q4, #1 INHALER Prov:CHELA CAMPO DO 11/09/16 Albuterol Sulfate (Proair Respiclick) 90 Mcg Aer.pow.ba, 1 PUFF INHALATION Q4 Y for SHORTNESS OF BREATH, #1 BOTTLE Prov:DANGELO PIPER MD 11/08/16 Acetaminophen* (Acetaminophen*) 325 Mg Tablet, 325 MG PO Q4H Y for PAIN AND OR ELEVATED TEMP for 10 Days, #30 TAB Prov:DANGELO PIPER MD 11/08/16 Prednisone* (Prednisone*) 20 Mg Tab, 40 MG PO DAILY for 3 Days, TAB Prov:DANGELO PIPER MD 11/08/16 Salmeterol Xinaf/Fluticasone* (Advair*) 250-50 Diskus Inhaler, 1 INH INH Q12 for 30 Days, #1 Prov:DANGELO PIPER MD 11/08/16 Metoprolol Tartrate* (Lopressor*) 50 Mg Tab, 75 MG PO BID for 14 Days, #28 TAB Prov:DANGELO PIPER MD 11/08/16 Azithromycin* (Azithromycin*) 250 Mg Tablet, 250 MG PO DAILY for 3 Days, #3 TAB Prov:DANGELO PIPER MD 11/08/16 Follow-up Plan Follow up with your primary care doctor for managmeent of your high blood pressure and kidney disease Primary Care Provider Care Physician No Primary Time spent on discharge: > 30 minutes Pending Labs Laboratory Tests Test 11/22/16 06:18 White Blood Count 12.410^3/ul (4.8-10.8) Red Blood Count 3.8610^6/ul (4.70-6.10) Hemoglobin 11.6g/dl (14.0-18.0) Hematocrit 35.8% (42.0-52.0) Mean Corpuscular Volume 92.7fl (82.0-101.0) Mean Corpuscular Hemoglobin 30.1pg (29.0-33.0) Mean Corpuscular Hemoglobin Concent 32.4g/dl (32.0-37.0) Red Cell Distribution Width 15.1% (11.5-14.5) Platelet Count 34804^3/UL (140-415) Mean Platelet Volume 9.9fl (7.4-10.4) Neutrophils % 67.5% (39.0-77.0) Lymphocytes % 17.3% (15.0-51.0) Monocytes % 8.8% (0.0-11.0) Eosinophils % 4.9% (0.0-7.0) Basophils % 0.5% (0.0-2.0) Nucleated Red Blood Cells % 0.0/100WBC (0.0-0.0) Neutrophils # 8.410^3/ul (1.6-7.5) Lymphocytes # 2.110^3/ul (0.8-2.9) Monocytes # 1.110^3/ul (0.3-0.9) Eosinophils # 0.610^3/ul (0.0-0.5) Basophils # 0.110^3/ul (0.0-0.1) Nucleated Red Blood Cells # 0.010^3/ul (0.0-0.0) Sodium Level 138mmol/L (135-144) Potassium Level 4.1mmol/L (3.5-5.1) Chloride Level 103mmol/L (97-110) Carbon Dioxide Level 30mmol/L (21-31) Anion Gap 9 (8-16) Blood Urea Nitrogen 30mg/dl (7-20) Creatinine 1.68mg/dl (0.61-1.24) Glucose Level 94mg/dl (70-220) Calcium Level 8.3mg/dl (8.4-10.2) Total Bilirubin 0.3mg/dl (0.2-1.3) Direct Bilirubin 0.00mg/dl (0.00-0.20) Indirect Bilirubin 0.3mg/dl (0-1.1) Aspartate Amino Transf (AST/SGOT) 31IU/L (15-46) Alanine Aminotransferase (ALT/SGPT) 42IU/L (13-69) Alkaline Phosphatase 123IU/L (42-121) Total Protein 6.0g/dl (6.1-8.1) Albumin 3.1g/dl (3.3-4.9) Globulin 2.90g/dl (1.3-3.2) Albumin/Globulin Ratio 1.06 ALEXY JOSHI MD Nov 22, 2016 15:21
== END 2016-11-22 17:10 | disposition home or self-care (01) | DRG 304 ==
LOC: E/R 19:08 → MS3 11-21 02:34
PROVIDERS: ADMIT Family Medicine; ATTEND Family Medicine
PROC: 0H9DXZZ Drainage of Right Lower Arm Skin, External Approach (ICD-10-PCS; principal; 2016-11-22)
DX: I16.9 Hypertensive crisis, unspecified (principal); J96.00 Acute respiratory failure, unspecified whether with hypoxia or hypercapnia; N17.9 Acute kidney failure, unspecified; L02.413 Cutaneous abscess of right upper limb; L02.414 Cutaneous abscess of left upper limb; L03.114 Cellulitis of left upper limb; J44.1 Chronic obstructive pulmonary disease with (acute) exacerbation; Z79.52 Long term (current) use of systemic steroids; Z59.0 Homelessness; I12.9 Hypertensive chronic kidney disease with stage 1 through stage 4 chronic kidney disease, or unspecified chronic kidney disease; Z72.0 Tobacco use; Z91.19 Patient's noncompliance with other medical treatment and regimen; N18.2 Chronic kidney disease, stage 2 (mild)
CPT/HCPCS: 36415; 71010; 71020; 76536; 80053; 80061; 82550; 82553; 83036; 83735; 83880; 84443; 84484; 85014; 85018; 85025; 87040; 87070; 90686; 93005; 93306; 96374; 96375; J0360; J1940; J2270; J3370; J7050